=== PATIENT | female | born 1985 | race Caucasian/White ===

== ENCOUNTER 2020-05-22 08:40 | Emergency (ER) | payer OTHER ==
[2020-05-22 08:50] VITALS: BP 131/83; PULSE 126; TEMP 98; BMI 46.5
== END 2020-05-22 10:12 | disposition home or self-care (01) ==
LOC: JER 08:40 → JERFT 08:40
DX: K02.9 Dental caries, unspecified (principal); T85.848A Pain due to other internal prosthetic devices, implants and grafts, initial encounter
CPT/HCPCS: 99283-25

== ENCOUNTER 2020-10-11 17:41 | Inpatient (IN) | payer OTHER ==
[2020-10-11 17:53] VITALS: BMI 20.9
[2020-10-11] MEDS ORDERED: SODIUM CHLORIDE 0.9% 500 ML INFUS.BAG IV ONE (18:15)
[2020-10-11] MEDS ORDERED: ONDANSETRON 4 MG/2 ML VIAL IVPUSH ONE (18:15)
[2020-10-11] MEDS ORDERED: morphine CARPU-JECT 2 MG/1 ML DISP.SYRIN IVPUSH ONE ×2 (18:15→20:45)
[2020-10-11] MEDS ORDERED: ONDANSETRON 4 MG/2 ML VIAL ONE (18:31)
[2020-10-11] MEDS ORDERED: MORPHINE SULFATE 2 MG/ML VIAL ONE ×2 (18:31→21:01)
[2020-10-11 18:48] LABS: BASO % 0.5 % (0-2.0); EOS % 0.1 % (0-4.5); HEMATOCRIT 35.1 % (32.4-45.2); HEMOGLOBIN 12.2 GM/dL (10.7-15.3); LYMPH % 7.4 % (8-40); MCH 26.6 pg (25.7-33.7); MCHC 34.7 g/dl (32.0-36.0); MEAN CELL VOLUME 76.8 fl (80-96); MEAN PLT VOLUME 8.5 fl (7.5-11.1); MONO % 5.8 % (3.8-10.2); NEUT % 86.2 % (42.8-82.8); PLATELET COUNT 120 10^3/uL (134-434); RBC 4.58 M/mm3 (3.60-5.2); RDW 13.5 % (11.6-15.6); WHITE BLOOD COUNT 5.8 K/mm3 (4.0-10.0)
[2020-10-11 19:15] LABS: ALBUMIN 3.9 g/dl (3.4-5.0); BLOOD UREA NITROGEN 9.7 mg/dL (7-18)
[2020-10-11 19:19] LABS: CREATININE 0.5 mg/dL (0.55-1.3)
[2020-10-11 19:21] LABS: BILIRUBIN,TOTAL 0.4 mg/dL (0.2-1); TOT PROT 8.8 g/dl (6.4-8.2)
[2020-10-11] MEDS ORDERED: ACETAMINOPHEN 1000 MG/100 ML VIAL (NON FORMULARY) IVPB ONE (20:40)
[2020-10-11] MEDS ORDERED: PIPERACILLIN/TAZOB 4.5 GM 4.5 GM in DEXTROSE 5%-WATER 100 ML IVPB ONE (20:43)
[2020-10-11] MEDS ORDERED: PIPERACILLIN/TAZOB 4.5 GM 4.5 GM/100 ML BAG IVPB ONE (21:02)
[2020-10-11] MEDS ORDERED: ONDANSETRON 4 MG/2 ML VIAL IVPUSH PRN (21:43)
[2020-10-11 22:07] LABS: URINE APPEARANCE CLEAR; URINE COLOR YELLOW
[2020-10-11 22:08] LABS: URINE BILIRUBIN NEGATIVE (NEGATIVE); URINE GLUCOSE (UA) NEGATIVE (NEGATIVE); URINE KETONE NEGATIVE (NEGATIVE); URINE LEUK ESTERASE NEGATIVE (NEGATIVE); URINE NITRITE NEGATIVE (NEGATIVE); URINE PROTEIN NEGATIVE (NEGATIVE); URINE UROBILINOGEN 0.2 mg/dL (0.2-1.0)
[2020-10-11] MEDS ORDERED: DEXMEDETOMIDINE HCL 200 MCG/2 ML IVPB ONE ×2 (22:26→22:30)
[2020-10-11] MEDS ORDERED: ACETAMINOPHEN INJECTION 100 ML IVPB ONE (22:27)
[2020-10-11] MEDS ORDERED: BUPIVACAINE HCL/PF 0.25% (2.5MG/ML) 10 ML VIAL ONE (22:28)
[2020-10-11] MEDS ORDERED: MIDAZOLAM HCL 2 MG/2 ML SINGLE DOSE VIAL ONE (22:49)
[2020-10-11] MEDS ORDERED: ROCURONIUM BROMIDE 50 MG/5 ML SYRINGE ONE ×2 (22:58→23:24)
[2020-10-11] MEDS ORDERED: EPHEDRINE SULFATE/0.9% NACL/PF 50 MG/10 ML SYRINGE NR ONE (22:58)
[2020-10-11] MEDS ORDERED: PROPOFOL 20 ML ONE ×2 (22:58)
[2020-10-11] MEDS ORDERED: fentaNYL CITRATE 250 MCG/5 ML VIAL ONE (22:58)
[2020-10-11] MEDS ORDERED: KETAMINE HCL 200 MG/20 ML VIAL ONE (22:59)
[2020-10-11] MEDS ORDERED: NEOSTIGMINE METHYLSULFATE 0.5 MG/ML - 10 ML MDV ONE ×2 (23:13→23:17)
[2020-10-11] MEDS ORDERED: LIDOCAINE HCL/PF 2% SDV 5ML VIAL ONE (23:14)
[2020-10-11] MEDS ORDERED: KETOROLAC TROMETHAMINE 30 MG/1 ML VIAL ONE (23:14)
[2020-10-11] MEDS ORDERED: GLYCOPYRROLATE 0.2 MG/1 ML VIAL ONE (23:14)
[2020-10-11] MEDS ORDERED: BUPIVACAINE HCL/PF 0.5% (5MG/ML) 10 ML VIAL ONE (23:25)
[2020-10-11] MEDS ORDERED: BUPIVACAINE HCL/PF 0.5% (5MG/ML) 10 ML VIAL IJ ONE ×2 (23:27)
[2020-10-12] MEDS ORDERED: PIPERACILLIN/TAZOB 3.375 GM 3.375 GM in DEXTROSE 5%-WATER - 50 ML IVPB ONE (01:52)
[2020-10-12] MEDS ORDERED: ACETAMINOPHEN 1000 MG/100 ML VIAL (NON FORMULARY) IVPB ONE (02:33)
[2020-10-12] MEDS: LACTATED RINGERS SOLUTION 1,000 ML/1,000 ML INFUS.BAG IV SCH (02:34)
[2020-10-12] MEDS ORDERED: DEXTROSE 5%-WATER - 50 ML IVPB ONE (03:10)
[2020-10-12] MEDS ORDERED: PIPERACILLIN/TAZOBACTAM 3.375 GM VIAL IVPB ONE (03:10)
[2020-10-12] MEDS ORDERED: MORPHINE SULFATE 2 MG/ML VIAL IVPB ONE (03:26)
[2020-10-12] MEDS ORDERED: morphine CARPU-JECT 2 MG/1 ML DISP.SYRIN IM ONE (03:26)
[2020-10-12 08:43] LABS: BASO % 0.2 % (0-2.0); EOS % 0.1 % (0-4.5); HEMATOCRIT 27.9 % (32.4-45.2); HEMOGLOBIN 9.3 GM/dL (10.7-15.3); LYMPH % 15.8 % (8-40); MCH 26.2 pg (25.7-33.7); MCHC 33.5 g/dl (32.0-36.0); MEAN CELL VOLUME 78.2 fl (80-96); MEAN PLT VOLUME 9.2 fl (7.5-11.1); MONO % 7.9 % (3.8-10.2); PLATELET COUNT 87 10^3/uL (134-434); RBC 3.57 M/mm3 (3.60-5.2); RDW 13.3 % (11.6-15.6); WHITE BLOOD COUNT 2.6 K/mm3 (4.0-10.0)
[2020-10-12 08:55] LABS: BLOOD UREA NITROGEN 6.7 mg/dL (7-18); CALCIUM 7.8 mg/dL (8.5-10.1)
[2020-10-12 08:58] LABS: CREATININE 0.5 mg/dL (0.55-1.3)
[2020-10-12 09:00] LABS: BILIRUBIN,TOTAL 0.4 mg/dL (0.2-1)
[2020-10-12 09:12] LABS: ALBUMIN 2.6 g/dl (3.4-5.0); TOT PROT 6.2 g/dl (6.4-8.2)
[2020-10-12] MEDS: ACETAMINOPHEN 1000 MG/100 ML VIAL (NON FORMULARY) IVPB PRN ×2 (09:25→21:48)
[2020-10-12] MEDS: clonazePAM 0.5 MG TABLET PO SCH ×2 (09:26→21:43)
[2020-10-12] MEDS ORDERED: MORPHINE SULFATE 2 MG/ML VIAL IM ONE (11:32)
[2020-10-12] MEDS ORDERED: CEFEPIME HCL 1 GM VIAL (RESTRICTED TO ID) ONE ×2 (13:54→16:57)
[2020-10-12] MEDS ORDERED: DEXTROSE 5%-WATER 100 ML IVPB ONE ×2 (13:54→16:57)
[2020-10-12 14:10] LABS: BASO % 0.3 % (0-2.0); EOS % 0.6 % (0-4.5); HEMATOCRIT 26.3 % (32.4-45.2); HEMOGLOBIN 9.2 GM/dL (10.7-15.3); LYMPH % 18.3 % (8-40); MCH 26.6 pg (25.7-33.7); MCHC 34.8 g/dl (32.0-36.0); MEAN CELL VOLUME 76.6 fl (80-96); MEAN PLT VOLUME 8.4 fl (7.5-11.1); MONO % 9.4 % (3.8-10.2); NEUT % 71.4 % (42.8-82.8); PLATELET COUNT 80 10^3/uL (134-434); RBC 3.44 M/mm3 (3.60-5.2); RDW 13.4 % (11.6-15.6); WHITE BLOOD COUNT 2.1 K/mm3 (4.0-10.0)
[2020-10-12] MEDS: CEFEPIME 1 GM in DEXTROSE 5%-WATER 1 GM/100 ML BAG IVPB SCH ×2 (14:23→18:09)
[2020-10-12 14:25] LABS: INR 1.01 (0.83-1.09); PROTHROMBIN TIME (PATIENT) 12.2 SEC (9.7-13.0)
[2020-10-12 14:27] LABS: ACTIVATED PTT 27.9 SECONDS (25.2-36.5)
[2020-10-12 14:29] LABS: BLOOD UREA NITROGEN 6.4 mg/dL (7-18); CALCIUM 7.9 mg/dL (8.5-10.1)
[2020-10-12 14:30] LABS: ALBUMIN 2.7 g/dl (3.4-5.0)
[2020-10-12 14:33] LABS: CREATININE 0.5 mg/dL (0.55-1.3)
[2020-10-12 14:34] LABS: BILIRUBIN,TOTAL 0.4 mg/dL (0.2-1); TOT PROT 6.1 g/dl (6.4-8.2)
[2020-10-12] MEDS ORDERED: ESCITALOPRAM OXALATE 10 MG TABLET ONE (21:07)
[2020-10-12] MEDS ORDERED: PT OWN MED DRAWER 7, Y5N ONE (21:08)
[2020-10-12] MEDS: ESCITALOPRAM OXALATE 20 MG TABLET PO SCH (21:43)
[2020-10-13] MEDS ORDERED: CEFEPIME HCL 1 GM VIAL (RESTRICTED TO ID) ONE ×3 (00:47→17:07)
[2020-10-13] MEDS ORDERED: DEXTROSE 5%-WATER 100 ML IVPB ONE ×3 (00:47→17:07)
[2020-10-13] MEDS: CEFEPIME 1 GM in DEXTROSE 5%-WATER 1 GM/100 ML BAG IVPB SCH ×3 (00:59→17:37)
[2020-10-13] MEDS: LACTATED RINGERS SOLUTION 1,000 ML/1,000 ML INFUS.BAG IV SCH ×2 (06:13→14:16)
[2020-10-13 07:45] LABS: IRON SERUM 12 ug/dL (50-175); TOTAL IRON BINDING CAPACITY 170 ug/dL (250-450)
[2020-10-13] MEDS: clonazePAM 0.5 MG TABLET PO SCH ×2 (09:54→20:59)
[2020-10-13] MEDS: ACETAMINOPHEN 1000 MG/100 ML VIAL (NON FORMULARY) IVPB PRN ×2 (12:13→20:51)
[2020-10-13 14:20] LABS: BASO % 1.1 % (0-2.0); EOS % 0.2 % (0-4.5); HEMATOCRIT 26.7 % (32.4-45.2); MCH 26.6 pg (25.7-33.7); MCHC 33.8 g/dl (32.0-36.0); MEAN CELL VOLUME 78.7 fl (80-96); MEAN PLT VOLUME 9.5 fl (7.5-11.1); MONO % 10.1 % (3.8-10.2); NEUT % 67.6 % (42.8-82.8); PLATELET COUNT 83 10^3/uL (134-434); RBC 3.39 M/mm3 (3.60-5.2); RDW 13.5 % (11.6-15.6)
[2020-10-13 14:27] LABS: WHITE BLOOD COUNT 1.7 K/mm3 (4.0-10.0)
[2020-10-13 14:30] LABS: CALCIUM 7.8 mg/dL (8.5-10.1)
[2020-10-13 14:31] LABS: ALBUMIN 2.6 g/dl (3.4-5.0); BLOOD UREA NITROGEN 5.5 mg/dL (7-18)
[2020-10-13 14:34] LABS: CREATININE 0.4 mg/dL (0.55-1.3)
[2020-10-13 14:35] LABS: BILIRUBIN,TOTAL 0.3 mg/dL (0.2-1); TOT PROT 6.4 g/dl (6.4-8.2)
[2020-10-13 15:08] LABS: ANISOCYTOSIS 3+; MACROCYTOSIS 1+; PLATELET ESTIMATE DECREASED
[2020-10-13 15:57] LABS: BASO % 0.2 % (0-2.0); EOS % 0.3 % (0-4.5); HEMATOCRIT 26.2 % (32.4-45.2); HEMOGLOBIN 8.9 GM/dL (10.7-15.3); LYMPH % 15.6 % (8-40); MCH 26.5 pg (25.7-33.7); MCHC 34.1 g/dl (32.0-36.0); MEAN CELL VOLUME 77.8 fl (80-96); MONO % 9.7 % (3.8-10.2); NEUT % 74.2 % (42.8-82.8); PLATELET COUNT 83 10^3/uL (134-434); RBC 3.37 M/mm3 (3.60-5.2); RDW 13.5 % (11.6-15.6)
[2020-10-13 16:17] LABS: ALBUMIN 2.6 g/dl (3.4-5.0); BLOOD UREA NITROGEN 6.2 mg/dL (7-18); CALCIUM 7.7 mg/dL (8.5-10.1)
[2020-10-13 16:20] LABS: CREATININE 0.3 mg/dL (0.55-1.3)
[2020-10-13 16:22] LABS: BILIRUBIN,TOTAL 0.4 mg/dL (0.2-1); TOT PROT 6.3 g/dl (6.4-8.2)
[2020-10-13 16:55] LABS: WHITE BLOOD COUNT 1.8 K/mm3 (4.0-10.0)
[2020-10-13 17:00] LABS: ANISOCYTOSIS 1+; MACROCYTOSIS 0; PLATELET ESTIMATE DECREASED
[2020-10-13] MEDS ORDERED: POTASSIUM CHLORIDE TABS 20 MEQ TABLET.ER (FP) PO ONE (17:44)
[2020-10-13] MEDS ORDERED: ESCITALOPRAM OXALATE 10 MG TABLET ONE (20:42)
[2020-10-13] MEDS ORDERED: PT OWN MED DRAWER 7, Y5N ONE (20:43)
[2020-10-13] MEDS: ESCITALOPRAM OXALATE 20 MG TABLET PO SCH (20:59)
[2020-10-14] MEDS ORDERED: CEFEPIME HCL 1 GM VIAL (RESTRICTED TO ID) ONE ×2 (01:29→08:55)
[2020-10-14] MEDS ORDERED: DEXTROSE 5%-WATER 100 ML IVPB ONE ×2 (01:30→08:55)
[2020-10-14] MEDS: CEFEPIME 1 GM in DEXTROSE 5%-WATER 1 GM/100 ML BAG IVPB SCH ×2 (01:33→09:01)
[2020-10-14] MEDS: LACTATED RINGERS SOLUTION 1,000 ML/1,000 ML INFUS.BAG IV SCH (02:31)
[2020-10-14] MEDS: ACETAMINOPHEN 1000 MG/100 ML VIAL (NON FORMULARY) IVPB PRN ×2 (05:33→09:55)
[2020-10-14 06:56] LABS: BASO % 0.4 % (0-2.0); EOS % 0.6 % (0-4.5); HEMOGLOBIN 8.9 GM/dL (10.7-15.3); LYMPH % 22.4 % (8-40); MCH 26.6 pg (25.7-33.7); MCHC 34.3 g/dl (32.0-36.0); MEAN CELL VOLUME 77.5 fl (80-96); MEAN PLT VOLUME 8.5 fl (7.5-11.1); MONO % 12.4 % (3.8-10.2); NEUT % 64.2 % (42.8-82.8); PLATELET COUNT 82 10^3/uL (134-434); RBC 3.36 M/mm3 (3.60-5.2); RDW 13.6 % (11.6-15.6)
[2020-10-14 07:13] LABS: WHITE BLOOD COUNT 1.5 K/mm3 (4.0-10.0)
[2020-10-14] MEDS: clonazePAM 0.5 MG TABLET PO SCH ×2 (09:00→21:33)
[2020-10-14 10:40] LABS: ANISOCYTOSIS 1+; MACROCYTOSIS 0; PLATELET ESTIMATE DECREASED
[2020-10-14] MEDS ORDERED: ESCITALOPRAM OXALATE 10 MG TABLET ONE (21:19)
[2020-10-14] MEDS ORDERED: PT OWN MED DRAWER 7, Y5N ONE (21:20)
[2020-10-14] MEDS: ESCITALOPRAM OXALATE 20 MG TABLET PO SCH (21:33)
[2020-10-15 06:44] VITALS: TEMP 98.3
[2020-10-15] MEDS: LACTATED RINGERS SOLUTION 1,000 ML/1,000 ML INFUS.BAG IV SCH (07:00)
[2020-10-15 07:33] LABS: BASO % 2.4 % (0-2.0); EOS % 0.7 % (0-4.5); HEMATOCRIT 27.8 % (32.4-45.2); HEMOGLOBIN 9.5 GM/dL (10.7-15.3); MCH 26.3 pg (25.7-33.7); MCHC 34.1 g/dl (32.0-36.0); MEAN CELL VOLUME 77.2 fl (80-96); MEAN PLT VOLUME 9.4 fl (7.5-11.1); MONO % 9.2 % (3.8-10.2); NEUT % 66.7 % (42.8-82.8); PLATELET COUNT 116 10^3/uL (134-434); RBC 3.61 M/mm3 (3.60-5.2); RDW 13.6 % (11.6-15.6)
[2020-10-15 07:42] LABS: WHITE BLOOD COUNT 1.7 K/mm3 (4.0-10.0)
[2020-10-15 07:52] LABS: CALCIUM 7.5 mg/dL (8.5-10.1)
[2020-10-15 07:53] LABS: ALBUMIN 2.6 g/dl (3.4-5.0); BLOOD UREA NITROGEN 8.7 mg/dL (7-18)
[2020-10-15 07:56] LABS: CREATININE 0.4 mg/dL (0.55-1.3)
[2020-10-15 07:58] LABS: BILIRUBIN,TOTAL 0.3 mg/dL (0.2-1); TOT PROT 6.3 g/dl (6.4-8.2)
[2020-10-15] MEDS: clonazePAM 0.5 MG TABLET PO SCH (09:12)
[2020-10-15 09:16] VITALS: BP 129/83; PULSE 69
[2020-10-15 09:17] LABS: ANISOCYTOSIS 1+; MACROCYTOSIS 0; OVALOCYTE 1+; PLATELET ESTIMATE DECREASED
== END 2020-10-15 11:41 | disposition home or self-care (01) | DRG 225 ==
LOC: JER 17:41 → JERBED 21:03 → J4S 23:35
PROVIDERS: ADMIT Hospitalist; ATTEND Family Medicine
PROC: 0DTJ4ZZ Resection of Appendix, Percutaneous Endoscopic Approach (ICD-10-PCS; principal; 2020-10-12)
PROC: 0W3P4ZZ Control Bleeding in Gastrointestinal Tract, Percutaneous Endoscopic Approach (ICD-10-PCS; 2020-10-12)
DX: K35.30 Acute appendicitis with localized peritonitis, without perforation or gangrene (principal); D61.818 Other pancytopenia; F41.8 Other specified anxiety disorders; R16.1 Splenomegaly, not elsewhere classified; R59.1 Generalized enlarged lymph nodes; G43.909 Migraine, unspecified, not intractable, without status migrainosus; D50.9 Iron deficiency anemia, unspecified
CPT/HCPCS: 36415; 74177-TC; 80053; 81003; 82728; 83540; 83550; 83615; 84703; 85025; 85384; 85610; 85730; 86850; 86900; 86901; 87040; 87086; 88304-TC; 94760; 99285-25; C9803; J0131; Q9967; U0003; U0005

== ENCOUNTER 2020-11-12 07:46 | Inpatient (IN) | payer OTHER ==
[2020-11-12 07:59] VITALS: BMI 20.9
[2020-11-12] MEDS ORDERED: ACETAMINOPHEN 1000 MG/100 ML VIAL (NON FORMULARY) IVPB ONE (08:05)
[2020-11-12] MEDS ORDERED: SODIUM CHLORIDE 0.9% 500 ML INFUS.BAG IV ONE (08:45)
[2020-11-12] MEDS ORDERED: ACETAMINOPHEN INJECTION 100 ML IVPB ONE (08:49)
[2020-11-12 09:26] LABS: BASO % 0.4 % (0-2.0); HEMATOCRIT 30.8 % (32.4-45.2); HEMOGLOBIN 10.5 GM/dL (10.7-15.3); LYMPH % 2.6 % (8-40); MCH 26.4 pg (25.7-33.7); MCHC 34.2 g/dl (32.0-36.0); MEAN PLT VOLUME 11.1 fl (7.5-11.1); MONO % 7.3 % (3.8-10.2); NEUT % 89.7 % (42.8-82.8); PLATELET COUNT 122 10^3/uL (134-434); RBC 3.99 M/mm3 (3.60-5.2); RDW 14.5 % (11.6-15.6); WHITE BLOOD COUNT 8.6 K/mm3 (4.0-10.0)
[2020-11-12 09:29] LABS: VENOUS O2 SATURATION 60.1 % (70-80); VENOUS PCO2 39.9 mmHg (38-52); VENOUS PH 7.362 (7.310-7.410)
[2020-11-12 09:33] LABS: INR 1.16 (0.83-1.09)
[2020-11-12 09:36] LABS: ACTIVATED PTT 29.5 SECONDS (25.2-36.5)
[2020-11-12 09:49] LABS: CHLORIDE 100 mmol/L (98-107); SODIUM 136 mmol/L (136-145)
[2020-11-12 09:51] LABS: ANION GAP 12 MMOL/L (8-16); BLOOD UREA NITROGEN 16.2 mg/dL (7-18); CALCIUM 8.4 mg/dL (8.5-10.1); CO2 24 mmol/L (21-32); GLUCOSE,RANDOM 104 mg/dL (74-106)
[2020-11-12 09:55] LABS: CREATININE 0.9 mg/dL (0.55-1.3); SGOT/AST 25 U/L (15-37); SGPT/ALT 13 U/L (13-61)
[2020-11-12 09:56] LABS: BILIRUBIN,TOTAL 0.6 mg/dL (0.2-1); LDH 250 U/L (84-246); TOT PROT 8.4 g/dl (6.4-8.2)
[2020-11-12 09:57] LABS: ALK PHOS 51 U/L (45-117)
[2020-11-12 10:08] LABS: LACTIC ACID 2.3 mmol/L (0.4-2.0)
[2020-11-12] MEDS ORDERED: CEFTRIAXONE 1 GM in DEXTROSE 5%-WATER - 50 ML IVPB ONE (13:14)
[2020-11-12] MEDS ORDERED: AZITHROMYCIN IVPB 500 MG in DEXTROSE 5%-WATER - 250 ML IVPB ONE (13:14)
[2020-11-12] MEDS ORDERED: CEFTRIAXONE 1 GM/50 ML BAG ONE (13:55)
[2020-11-12] MEDS ORDERED: AZITHROMYCIN IVPB 500 MG/250 ML BAG IVPB ONE (13:55)
[2020-11-12] MEDS ORDERED: ALBUTEROL SO4 2.5/IPRATROPIUM 0.5 INH SOL 3 ML VIAL.NEB. NEB PRN (16:19)
[2020-11-12] MEDS ORDERED: PIPERACILLIN/TAZOB 3.375 GM 3.375 GM in DEXTROSE 5%-WATER - 50 ML IVPB ONE (16:19)
[2020-11-12 17:14] LABS: EPI CELLS 36 /uL (0-25.1); HYALINE CASTS 0 /uL (0-3.1); PH,URINE 5.5 (5.0-8.0); URINE APPEARANCE CLEAR; URINE BACTERIA 1063 /uL (0-1359); URINE BILIRUBIN NEGATIVE (NEGATIVE); URINE COLOR YELLOW; URINE GLUCOSE (UA) NEGATIVE (NEGATIVE); URINE KETONE NEGATIVE (NEGATIVE); URINE LEUK ESTERASE TRACE (NEGATIVE); URINE NITRITE NEGATIVE (NEGATIVE); URINE PROTEIN TRACE (NEGATIVE); URINE RBC 18 /uL (0-23.9); URINE UROBILINOGEN 0.2 mg/dL (0.2-1.0); URINE WBC 75 /uL (0-25.8)
[2020-11-12] MEDS ORDERED: PIPERACILLIN/TAZOB 3.375 GM 3.375 GM/50 ML BAG IVPB ONE (17:15)
[2020-11-12] MEDS ORDERED: VANCOMYCIN 1 GM in D5W (PRE-DOCKED) 1,000 MG/250 ML IVPB ONE (19:08)
[2020-11-12] MEDS: ACETAMINOPHEN 325 MG TABLET (FP) PO PRN (21:26)
[2020-11-13] MEDS ORDERED: SODIUM CHLORIDE 0.9% 500 ML INFUS.BAG IV ONE (01:47)
[2020-11-13] MEDS ORDERED: SODIUM CHLORIDE 250 ML IV STA (01:54)
[2020-11-13] MEDS: ACETAMINOPHEN 325 MG TABLET (FP) PO PRN (06:29)
[2020-11-13 09:16] LABS: BASO % 0.3 % (0-2.0); HEMATOCRIT 26.8 % (32.4-45.2); HEMOGLOBIN 9.3 GM/dL (10.7-15.3); LYMPH % 5.6 % (8-40); MCH 26.6 pg (25.7-33.7); MCHC 34.5 g/dl (32.0-36.0); MEAN PLT VOLUME 10.9 fl (7.5-11.1); MONO % 7.8 % (3.8-10.2); NEUT % 86.3 % (42.8-82.8); PLATELET COUNT 120 10^3/uL (134-434); RBC 3.48 M/mm3 (3.60-5.2); RDW 14.6 % (11.6-15.6); WHITE BLOOD COUNT 4.3 K/mm3 (4.0-10.0)
[2020-11-13 09:35] LABS: CHLORIDE 104 mmol/L (98-107); SODIUM 136 mmol/L (136-145)
[2020-11-13 09:46] LABS: ALK PHOS 46 U/L (45-117)
[2020-11-13 09:50] LABS: CALCIUM 7.7 mg/dL (8.5-10.1)
[2020-11-13 09:51] LABS: ALBUMIN 2.5 g/dl (3.4-5.0); BLOOD UREA NITROGEN 13.1 mg/dL (7-18); CO2 20 mmol/L (21-32); GLUCOSE,RANDOM 83 mg/dL (74-106); SGPT/ALT 11 U/L (13-61)
[2020-11-13 09:55] LABS: CREATININE 0.6 mg/dL (0.55-1.3); SGOT/AST 16 U/L (15-37)
[2020-11-13 09:56] LABS: BILIRUBIN,TOTAL 0.7 mg/dL (0.2-1)
[2020-11-13 10:09] LABS: ERYTHROCYTE SEDIMENTATION RATE 99 mm/hr (0-20)
[2020-11-13 10:12] LABS: LDH 176 U/L (84-246)
[2020-11-13 10:26] LABS: ANION GAP 12 MMOL/L (8-16)
[2020-11-13] MEDS ORDERED: POTASSIUM CHLORIDE TABS 20 MEQ TABLET.ER (FP) PO ONE (13:00)
[2020-11-13] MEDS ORDERED: PIPERACILLIN/TAZOB 3.375 GM 3.375 GM in DEXTROSE 5%-WATER - 50 ML IVPB SCH (13:45)
[2020-11-13 13:47] VITALS: BP 103/66; PULSE 77; TEMP 98
[2020-11-13] MEDS ORDERED: VANCOMYCIN 1 GRAM (PRE-DOCKED) 1,000 MG/250 ML BAG IVPB SCH (14:00)
[2020-11-13] MEDS ORDERED: POTASSIUM CHLORIDE 10 MEQ in SODIUM CHLORIDE 1,000 ML IV SCH (14:00)
[2020-11-13] MEDS ORDERED: DEXTROSE 5%-WATER - 50 ML IVPB ONE ×2 (14:05→17:46)
[2020-11-13] MEDS ORDERED: PIPERACILLIN/TAZOBACTAM 3.375 GM VIAL IVPB ONE ×2 (14:05→17:46)
[2020-11-13] MEDS: PIPERACILLIN/TAZOB 3.375 GM 3.375 GM in DEXTROSE 5%-WATER - 50 ML IVPB SCH ×2 (14:07→17:50)
== END 2020-11-13 18:32 | disposition left against medical advice (07) | DRG 139 ==
LOC: JER 07:46 → JERBED 17:02 → J6S 18:56
PROVIDERS: ATTEND Family Medicine
DX: J18.9 Pneumonia, unspecified organism (principal); I10 Essential (primary) hypertension; E78.5 Hyperlipidemia, unspecified; F39 Unspecified mood [affective] disorder; F41.8 Other specified anxiety disorders; R74.02 Elevation of levels of lactic acid dehydrogenase [LDH]; R78.81 Bacteremia; R53.83 Other fatigue; R10.31 Right lower quadrant pain; D69.6 Thrombocytopenia, unspecified; D64.9 Anemia, unspecified; R64 Cachexia; Z68.21 Body mass index [BMI] 21.0-21.9, adult
CPT/HCPCS: 36415; 71045-TC-FY; 71275-TC; 80053; 80074; 81003; 82728; 82803; 83605; 83615; 84484; 84703; 85025; 85379; 85610; 85651; 85730; 86140; 87040; 87086; 87186; 87804; 93005; 93010; 99285-25; C9803; J0131; Q9967; U0003; U0005

== ENCOUNTER 2021-09-04 16:01 | Emergency (ER) | payer OTHER ==
[2021-09-04 16:17] VITALS: TEMP 99.6
[2021-09-04] MEDS ORDERED: SODIUM CHLORIDE 1,633 ML IV ONE (17:21)
[2021-09-04] MEDS ORDERED: FAMOTIDINE 20 MG/50 ML IVPB 20 MG/50 ML MG IVPB ONE (17:47)
[2021-09-04] MEDS ORDERED: ONDANSETRON 4 MG/2 ML VIAL IVPB ONE (17:55)
[2021-09-04] MEDS ORDERED: ONDANSETRON 4 MG/2 ML VIAL ONE (18:02)
[2021-09-04] MEDS ORDERED: FAMOTIDINE 10 MG/ML VIAL IVPB ONE (18:03)
[2021-09-04 18:18] LABS: VENOUS BASE EXCESS -1.3 mmol/L (-2-2); VENOUS O2 SATURATION 97.3 % (70-80); VENOUS PH 7.42 (7.310-7.410)
[2021-09-04 18:21] LABS: BASO % 0.2 % (0-2.0); EOS % 0.1 % (0-4.5); HEMATOCRIT 27.5 % (32.4-45.2); HEMOGLOBIN 9.2 GM/dL (10.7-15.3); LYMPH % 4.8 % (8-40); MCH 25.7 pg (25.7-33.7); MCHC 33.5 g/dl (32.0-36.0); MEAN CELL VOLUME 76.7 fl (80-96); MEAN PLT VOLUME 8.8 fl (7.5-11.1); MONO % 6.2 % (3.8-10.2); NEUT % 88.7 % (42.8-82.8); PLATELET COUNT 145 10^3/uL (134-434); RBC 3.59 M/mm3 (3.60-5.2); RDW 14.4 % (11.6-15.6)
[2021-09-04 18:28] LABS: INR 1.09 (0.83-1.09); PROTHROMBIN TIME (PATIENT) 12.5 SEC (9.7-13.0)
[2021-09-04 18:30] LABS: ACTIVATED PTT 32.5 SECONDS (25.2-36.5)
[2021-09-04 18:37] LABS: CHLORIDE 106 mmol/L (98-107); SODIUM 136 mmol/L (136-145)
[2021-09-04 18:40] LABS: CALCIUM 8.3 mg/dL (8.5-10.1)
[2021-09-04 18:41] LABS: ANION GAP 6 MMOL/L (8-16); BLOOD UREA NITROGEN 14.5 mg/dL (7-18); CO2 25 mmol/L (21-32); GLUCOSE,RANDOM 103 mg/dL (74-106)
[2021-09-04 18:44] LABS: CREATININE 0.6 mg/dL (0.55-1.3); SGOT/AST 10 U/L (15-37); SGPT/ALT 10 U/L (13-61)
[2021-09-04 18:45] LABS: TOT PROT 7.8 g/dl (6.4-8.2)
[2021-09-04 18:47] LABS: ALK PHOS 57 U/L (45-117)
[2021-09-04 18:52] LABS: BILIRUBIN,TOTAL 0.3 mg/dL (0.2-1)
[2021-09-04] MEDS ORDERED: SODIUM CHLORIDE 0.9% 500 ML INFUS.BAG IV ONE (20:08)
[2021-09-04 21:32] VITALS: BP 100/58; PULSE 83
== END 2021-09-04 21:38 | disposition home or self-care (01) ==
LOC: JER 16:01
PROC: 3E033GC Introduction of Other Therapeutic Substance into Peripheral Vein, Percutaneous Approach (ICD-10-PCS; principal; 2021-09-04)
DX: R65.10 Systemic inflammatory response syndrome (SIRS) of non-infectious origin without acute organ dysfunction (principal)
CPT/HCPCS: 0241U-QW; 36415; 71045-TC-FY; 80053; 82553; 82803; 83605; 84703; 85025; 85610; 85730; 86850; 86900; 86901; 87040; 87086; 99285-25

== ENCOUNTER 2022-08-03 12:43 | Inpatient (IN) | payer OTHER ==
[2022-08-03] MEDS ORDERED: SODIUM CHLORIDE 0.9% 500 ML INFUS.BAG IV ONE ×2 (13:23)
[2022-08-03] MEDS ORDERED: CEFTRIAXONE 1 GM in DEXTROSE 5%-WATER - 100 ML IVPB ONE (13:27)
[2022-08-03] MEDS ORDERED: ACETAMINOPHEN 1000 MG/100 ML BAG IVPB ONE (13:27)
[2022-08-03] MEDS ORDERED: ACETAMINOPHEN INJECTION 100 ML IVPB ONE (13:30)
[2022-08-03] MEDS ORDERED: CEFTRIAXONE 1 GM/50 ML BAG ONE (13:30)
[2022-08-03 13:48] LABS: INR 1.44 (0.83-1.09); PROTHROMBIN TIME (PATIENT) 16.6 SEC (9.7-13.0)
[2022-08-03 13:51] LABS: ACTIVATED PTT 32.9 SECONDS (25.2-36.5)
[2022-08-03 13:56] LABS: POTASSIUM 3.7 mmol/L (3.5-5.1)
[2022-08-03 13:59] LABS: ALBUMIN 1.8 g/dl (3.4-5.0)
[2022-08-03 14:00] LABS: MAGNESIUM 1.7 mg/dL (1.8-2.4)
[2022-08-03 14:02] LABS: CREATININE 1.4 mg/dL (0.55-1.3); PHOSPHOROUS 3.1 mg/dL (2.5-4.9)
[2022-08-03 14:03] LABS: BILIRUBIN,TOTAL 0.4 mg/dL (0.2-1); TOT PROT 7.9 g/dl (6.4-8.2)
[2022-08-03] MEDS ORDERED: AZITHROMYCIN IVPB 500 MG in DEXTROSE 5%-WATER - 250 ML IVPB ONE (14:04)
[2022-08-03 14:05] LABS: HEMATOCRIT 24.3 % (32.4-45.2); MCH 23.2 pg (25.7-33.7); MEAN CELL VOLUME 70.2 fl (80-96); MEAN PLT VOLUME 9.7 fl (7.5-11.1); PLATELET COUNT 173 10^3/uL (134-434); RBC 3.45 M/mm3 (3.60-5.2); RDW 17.2 % (11.6-15.6)
[2022-08-03] MEDS ORDERED: AZITHROMYCIN IVPB 500 MG/250 ML BAG IVPB ONE (14:08)
[2022-08-03 14:12] LABS: WHITE BLOOD COUNT 1.1 K/mm3 (4.0-10.0)
[2022-08-03 14:20] LABS: VENOUS BASE EXCESS -10.4 mmol/L (-2-2); VENOUS O2 SATURATION 97.1 % (70-80); VENOUS PCO2 26.5 mmHg (38-52); VENOUS PH 7.346 (7.310-7.410)
[2022-08-03 14:38] LABS: ANISOCYTOSIS 2+; MACROCYTOSIS 2+
[2022-08-03] MEDS ORDERED: HYDROCORTISONE SOD SUCCINATE 100 MG/2 ML VIAL IVPUSH ONE (14:44)
[2022-08-03] MEDS ORDERED: HYDROCORTISONE SOD SUCCINATE 100 MG/2 ML VIAL ONE (14:54)
[2022-08-03] MEDS ORDERED: CEFEPIME HCL/D5W 1 GM/50 ML BAG IVPB ONE (15:08)
[2022-08-03] MEDS ORDERED: VANCOMYCIN 1 GM in D5W (PRE-DOCKED) 1,000 MG/250 ML (RESTRICTED TO ID ONLY IVPB ONE (15:08)
[2022-08-03] MEDS ORDERED: ALPRAZolam 1 MG TABLET PO PRN (15:12)
[2022-08-03] MEDS ORDERED: KETAMINE HCL 200 MG/20 ML VIAL IVPUSH ONE (15:16)
[2022-08-03] MEDS ORDERED: ALPRAZolam 1 MG TABLET ONE (15:37)
[2022-08-03] MEDS ORDERED: KETAMINE HCL 200 MG/20 ML VIAL ONE (15:37)
[2022-08-03] MEDS ORDERED: MAGNESIUM SULF 50% (8.12 MEQ/2 ML-1 GM VIAL) IVPB ONE ×2 (15:38→21:15)
[2022-08-03] MEDS ORDERED: CEFEPIME 1 GM/100 ML BAG IVPB ONE (15:38)
[2022-08-03] MEDS ORDERED: ENOXAPARIN NA (PORCINE) 30 MG/0.3 ML DISP.SYRIN SQ SCH (16:15)
[2022-08-03] MEDS ORDERED: MAGNESIUM 1GM/D5W - 1 GM/100 ML IVPB IVPB ONE (16:31)
[2022-08-03] MEDS: LACTATED RINGERS SOLUTION 1,000 ML/1,000 ML INFUS.BAG IV SCH (17:05)
[2022-08-03 17:21] LABS: EPI CELLS 15 /uL (0-25.1); HYALINE CASTS 0 /uL (0-3.1); URINE APPEARANCE CLEAR; URINE BACTERIA 248 /uL (0-1359); URINE BILIRUBIN NEGATIVE (NEGATIVE); URINE COLOR YELLOW; URINE GLUCOSE (UA) NEGATIVE (NEGATIVE); URINE KETONE NEGATIVE (NEGATIVE); URINE LEUK ESTERASE TRACE (NEGATIVE); URINE NITRITE NEGATIVE (NEGATIVE); URINE PROTEIN 1+ (NEGATIVE); URINE RBC 13 /uL (0-23.9); URINE UROBILINOGEN 0.2 mg/dL (0.2-1.0); URINE WBC 12 /uL (0-25.8)
[2022-08-03 17:31] LABS: METHADONE, UR NEGATIVE (NEGATIVE)
[2022-08-03 17:32] LABS: OPIATES, URI NEGATIVE (NEGATIVE); PHENCYCLIDINE,URINE NEGATIVE (NEGATIVE)
[2022-08-03 17:34] LABS: URINE AMPHETAMINES NEGATIVE (NEGATIVE)
[2022-08-03 17:36] LABS: COCAINE, UR NEGATIVE (NEGATIVE); URINE BARBITURATES NEGATIVE (NEGATIVE); URINE BENZODIAZEPINES POSITIVE (NEGATIVE)
[2022-08-03 17:38] LABS: CHLORIDE 113 mmol/L (98-107); POTASSIUM 3.7 mmol/L (3.5-5.1); SODIUM 137 mmol/L (136-145)
[2022-08-03 17:42] LABS: ANION GAP 7 MMOL/L (8-16); BLOOD UREA NITROGEN 31.3 mg/dL (7-18); CO2 17 mmol/L (21-32); GLUCOSE,RANDOM 110 mg/dL (74-106)
[2022-08-03 17:44] LABS: SGOT/AST 41 U/L (15-37)
[2022-08-03 17:45] LABS: ALK PHOS 45 U/L (45-117); BILIRUBIN,TOTAL 0.3 mg/dL (0.2-1); SGPT/ALT 21 U/L (13-61)
[2022-08-03 18:06] LABS: LDH 328 U/L (84-246)
[2022-08-03 18:14] LABS: ALBUMIN 1.3 g/dl (3.4-5.0)
[2022-08-03] MEDS ORDERED: VANCOMYCIN/WATER FOR INJ (PEG) 1,000 MG/200 ML BAG IVPB ONE (18:24)
[2022-08-03] MEDS ORDERED: RAPID SEQUENCE INTUBATION KIT NR ONE (18:36)
[2022-08-03] MEDS ORDERED: MIDAZOLAM IN 0.9 % SOD.CHLORID 1 MG/1 ML PLAST..BAG ONE (18:38)
[2022-08-03 18:46] LABS: CALCIUM 6.6 mg/dL (8.5-10.1)
[2022-08-03] MEDS ORDERED: ROCURONIUM BROMIDE 50 MG/5 ML VIAL IV ONE (19:03)
[2022-08-03] MEDS ORDERED: ETOMIDATE 40 MG/20 ML VIAL IVPUSH ONE (19:03)
[2022-08-03] MEDS ORDERED: MIDAZOLAM IN 0.9 % SOD.CHLORID 100 MG/100 ML PLAST..BAG IVPB SCH (19:15)
[2022-08-03] MEDS ORDERED: FENTANYL NS IVPB 500 MCG/100 ML BAG IVPB SCH (19:15)
[2022-08-03] MEDS ORDERED: CALCIUM GLUC IN NACL, ISO-OSM 1 GM/50 ML BAG IVPB ONE (21:15)
[2022-08-03] MEDS: PROPOFOL 1,000,000 MCG/100 ML VIAL IVPB SCH (21:51)
[2022-08-03] MEDS ORDERED: MUPIROCIN 2% TOPICAL OINTMENT FOR DECOLONIZATION NS SCH (22:00)
[2022-08-03] MEDS ORDERED: LACTATED RINGERS SOLUTION 1000 ML INFUS.BAG IV ONE (22:15)
[2022-08-03] MEDS: MUPIROCIN 2% TOPICAL OINTMENT FOR DECOLONIZATION NS SCH (22:42)
[2022-08-03] MEDS: HEPARIN NA (PORCINE) 5,000 UNITS/ML 1ML VIAL SQ SCH (22:42)
[2022-08-03] MEDS: CHLORHEXIDINE GLUCONATE 4% CLEANSER FOR DECOLONIZATION TP SCH (22:43)
[2022-08-04] MEDS: PIPERACILLIN/TAZOB 3.375 GM 3.375 GM in DEXTROSE 5%-WATER - 50 ML IVPB SCH ×5 (00:37→17:11)
[2022-08-04] MEDS ORDERED: fentaNYL CITRATE 250 MCG/5 ML VIAL ONE (01:37)
[2022-08-04 01:53] LABS: ARTERIAL BLD GAS O2 SATURATION 99.1 % (95-98); ARTERIAL BLOOD GAS BASE EXCESS -7.2 mmol/L (-2-2); ARTERIAL BLOOD GAS PO2 178.2 mmHg (80-100); ARTERIAL BLOOD GAS pH 7.303 (7.350-7.450)
[2022-08-04 02:08] LABS: HEMATOCRIT 23.2 % (32.4-45.2); HEMOGLOBIN 7.7 GM/dL (10.7-15.3); MCH 23.2 pg (25.7-33.7); MEAN CELL VOLUME 70.3 fl (80-96); MEAN PLT VOLUME 9.1 fl (7.5-11.1); PLATELET COUNT 98 10^3/uL (134-434); RDW 17.1 % (11.6-15.6)
[2022-08-04 02:11] LABS: ALLENS TEST POSITIVE; VENT MODE A/C; VENT RATE 20
[2022-08-04 02:14] LABS: WHITE BLOOD COUNT 0.9 K/mm3 (4.0-10.0)
[2022-08-04 02:18] LABS: POTASSIUM 3.6 mmol/L (3.5-5.1)
[2022-08-04 02:19] LABS: CALCIUM 7.2 mg/dL (8.5-10.1)
[2022-08-04 02:20] LABS: BLOOD UREA NITROGEN 29.7 mg/dL (7-18)
[2022-08-04 02:23] LABS: CREATININE 0.7 mg/dL (0.55-1.3)
[2022-08-04] MEDS ORDERED: VANCOMYCIN/WATER FOR INJ (PEG) 750 MG/150 ML BAG IVPB SCH (02:30)
[2022-08-04] MEDS ORDERED: VANCOMYCIN 750 MG in DEXTROSE 5%-WATER - 100 ML IVPB SCH (02:30)
[2022-08-04] MEDS ORDERED: VANCOMYCIN 750 MG in DEXTROSE 5%-WATER - 100 ML IVPB ONE (02:30)
[2022-08-04 02:58] LABS: LACTIC ACID 3.1 mmol/L (0.4-2.0)
[2022-08-04] MEDS ORDERED: ACETAMINOPHEN INJECTION 100 ML IVPB ONE (04:06)
[2022-08-04] MEDS: ACETAMINOPHEN 1000 MG/100 ML BAG IVPB PRN ×2 (04:08→16:19)
[2022-08-04] MEDS ORDERED: REMDESIVIR 200 MG in SODIUM CHLORIDE 250 ML IVPB ONE (05:00)
[2022-08-04] MEDS: HEPARIN NA (PORCINE) 5,000 UNITS/ML 1ML VIAL SQ SCH ×3 (06:27→21:35)
[2022-08-04 06:56] LABS: ARTERIAL BLD GAS O2 SATURATION 97.8 % (95-98); ARTERIAL BLOOD GAS PO2 117.8 mmHg (80-100); ARTERIAL BLOOD GAS pH 7.268 (7.350-7.450)
[2022-08-04 06:58] LABS: VENT MODE A/C; VENT RATE 20
[2022-08-04 06:59] LABS: EPI CELLS 16 /uL (0-25.1); HYALINE CASTS 1 /uL (0-3.1); URINE APPEARANCE CLEAR; URINE BACTERIA 2 /uL (0-1359); URINE BILIRUBIN NEGATIVE (NEGATIVE); URINE COLOR YELLOW; URINE GLUCOSE (UA) NEGATIVE (NEGATIVE); URINE KETONE NEGATIVE (NEGATIVE); URINE LEUK ESTERASE NEGATIVE (NEGATIVE); URINE NITRITE NEGATIVE (NEGATIVE); URINE PROTEIN 1+ (NEGATIVE); URINE RBC 103 /uL (0-23.9); URINE UROBILINOGEN 0.2 mg/dL (0.2-1.0); URINE WBC 9 /uL (0-25.8)
[2022-08-04 07:43] LABS: HEMOGLOBIN 7.5 GM/dL (10.7-15.3); MCHC 32.8 g/dl (32.0-36.0); MEAN CELL VOLUME 70.1 fl (80-96); MEAN PLT VOLUME 10.2 fl (7.5-11.1); PLATELET COUNT 100 10^3/uL (134-434); RBC 3.28 M/mm3 (3.60-5.2); RDW 16.8 % (11.6-15.6)
[2022-08-04 07:51] LABS: POTASSIUM 3.4 mmol/L (3.5-5.1)
[2022-08-04 07:53] LABS: CALCIUM 7.1 mg/dL (8.5-10.1)
[2022-08-04 07:54] LABS: ALBUMIN 1.3 g/dl (3.4-5.0); BLOOD UREA NITROGEN 28.8 mg/dL (7-18); MAGNESIUM 2.9 mg/dL (1.8-2.4)
[2022-08-04 07:57] LABS: CREATININE 0.7 mg/dL (0.55-1.3); PHOSPHOROUS 4.2 mg/dL (2.5-4.9)
[2022-08-04 07:58] LABS: BILIRUBIN,TOTAL 0.4 mg/dL (0.2-1); TOT PROT 5.9 g/dl (6.4-8.2)
[2022-08-04 08:18] LABS: WHITE BLOOD COUNT 1.3 K/mm3 (4.0-10.0)
[2022-08-04] MEDS: NOREPINEPHRINE BITARTRATE 4,000 MCG in DEXTROSE 5%-WATER - 496 ML IV SCH (09:00)
[2022-08-04] MEDS ORDERED: NOREPINEPHRINE BITARTRATE 4 MG/4 ML ML IV ONE (09:16)
[2022-08-04] MEDS ORDERED: LACTATED RINGERS SOLUTION 1,000 ML/1,000 ML INFUS.BAG IV STA (09:27)
[2022-08-04 10:07] LABS: ANISOCYTOSIS 1+; MACROCYTOSIS 0; OVALOCYTE 1+
[2022-08-04 10:24] LABS: ANISOCYTOSIS 0; HELMET CELLS 0; HOWELL-JOLLY BODIES 0; MACROCYTOSIS 0; OVALOCYTE 0; ROULEAU 0; SICKELED CELLS 0; TARGET CELLS 0; TEAR DROP CELLS 0; TOXIC GRANULATION 0
[2022-08-04] MEDS: MUPIROCIN 2% TOPICAL OINTMENT FOR DECOLONIZATION NS SCH ×2 (10:41→21:35)
[2022-08-04] MEDS: LACTATED RINGERS SOLUTION 1,000 ML/1,000 ML INFUS.BAG IV SCH ×2 (10:44→19:15)
[2022-08-04] MEDS: PANTOPRAZOLE SODIUM 40 MG VIAL IVPUSH SCH (11:10)
[2022-08-04] MEDS: AZITHROMYCIN IVPB 500 MG/250 ML BAG IVPB SCH (11:10)
[2022-08-04] MEDS: DEXAMETHASONE SOD PHOSPHATE 10 MG/1 ML VIAL IVPUSH SCH (11:10)
[2022-08-04] MEDS ORDERED: AZITHROMYCIN IVPB 500 MG/250 ML BAG IVPB ONE (12:00)
[2022-08-04] MEDS ORDERED: DEXTROSE 50%-WATER 25 GM/50 ML DISP.SYRIN ONE (12:39)
[2022-08-04] MEDS: DEXTROSE 5%-LACTATED RINGERS 1,000 ML IV SCH ×2 (13:00→21:38)
[2022-08-04] MEDS ORDERED: DEXTROSE 50%-WATER - 25 GM/50 ML VIAL IVPUSH ONE (13:00)
[2022-08-04] MEDS: VANCOMYCIN/WATER FOR INJ (PEG) 750 MG/150 ML BAG IVPB SCH (13:19)
[2022-08-04] MEDS ORDERED: POTASSIUM CHLORIDE ORAL LIQUID 20 MEQ/15 ML GT ONE (13:49)
[2022-08-04] MEDS ORDERED: POTASSIUM CHLORIDE ORAL LIQUID 20 MEQ/15 ML PO ONE (13:49)
[2022-08-04] MEDS: THIAMINE HCL 200 MG/2 ML VIAL IVPB SCH (15:18)
[2022-08-04] MEDS: MIDAZOLAM IN 0.9 % SOD.CHLORID 100 MG/100 ML PLAST..BAG IVPB SCH (19:00)
[2022-08-04] MEDS: FENTANYL NS IVPB 500 MCG/100 ML BAG IVPB SCH (19:00)
[2022-08-04] MEDS: CHLORHEXIDINE GLUCONATE 4% CLEANSER FOR DECOLONIZATION TP SCH (21:35)
[2022-08-05] MEDS: VANCOMYCIN/WATER FOR INJ (PEG) 750 MG/150 ML BAG IVPB SCH ×2 (00:27→16:45)
[2022-08-05] MEDS: NOREPINEPHRINE BITARTRATE 4,000 MCG in DEXTROSE 5%-WATER - 496 ML IV SCH ×2 (00:29→11:06)
[2022-08-05] MEDS: PIPERACILLIN/TAZOB 3.375 GM 3.375 GM in DEXTROSE 5%-WATER - 50 ML IVPB SCH ×3 (01:39→19:45)
[2022-08-05] MEDS: FENTANYL NS IVPB 500 MCG/100 ML BAG IVPB SCH ×3 (01:39→23:56)
[2022-08-05] MEDS: PROPOFOL 1,000,000 MCG/100 ML VIAL IVPB SCH ×3 (01:41→21:21)
[2022-08-05] MEDS: HEPARIN NA (PORCINE) 5,000 UNITS/ML 1ML VIAL SQ SCH ×3 (05:11→21:21)
[2022-08-05] MEDS: MIDAZOLAM IN 0.9 % SOD.CHLORID 100 MG/100 ML PLAST..BAG IVPB SCH (05:11)
[2022-08-05] MEDS ORDERED: REMDESIVIR 200 MG in SODIUM CHLORIDE 250 ML IVPB SCH (06:00)
[2022-08-05 06:35] LABS: ARTERIAL BLD GAS O2 SATURATION 99.2 % (95-98); ARTERIAL BLOOD GAS BASE EXCESS -6.5 mmol/L (-2-2); ARTERIAL BLOOD GAS PO2 187.1 mmHg (80-100); ARTERIAL BLOOD GAS pH 7.304 (7.350-7.450)
[2022-08-05 06:37] LABS: VENT MODE A/C; VENT RATE 20
[2022-08-05 07:29] LABS: HEMATOCRIT 20.7 % (32.4-45.2); MCH 23.5 pg (25.7-33.7); MCHC 33.6 g/dl (32.0-36.0); MEAN PLT VOLUME 10.1 fl (7.5-11.1); PLATELET COUNT 112 10^3/uL (134-434); RBC 2.95 M/mm3 (3.60-5.2); RDW 17.5 % (11.6-15.6)
[2022-08-05 07:36] LABS: HEMOGLOBIN 6.9 GM/dL (10.7-15.3)
[2022-08-05 07:44] LABS: POTASSIUM 3.6 mmol/L (3.5-5.1)
[2022-08-05 07:49] LABS: ALBUMIN 1.2 g/dl (3.4-5.0); CALCIUM 7.3 mg/dL (8.5-10.1)
[2022-08-05 07:50] LABS: BLOOD UREA NITROGEN 31.2 mg/dL (7-18); MAGNESIUM 2.6 mg/dL (1.8-2.4)
[2022-08-05 07:52] LABS: CREATININE 0.8 mg/dL (0.55-1.3)
[2022-08-05 07:54] LABS: BILIRUBIN,TOTAL 0.4 mg/dL (0.2-1); TOT PROT 5.7 g/dl (6.4-8.2)
[2022-08-05] MEDS ORDERED: POTASSIUM CHLORIDE ORAL LIQUID 20 MEQ/15 ML GT ONE (07:58)
[2022-08-05] MEDS: PANTOPRAZOLE SODIUM 40 MG VIAL IVPUSH SCH (09:10)
[2022-08-05] MEDS: DEXAMETHASONE SOD PHOSPHATE 10 MG/1 ML VIAL IVPUSH SCH (09:10)
[2022-08-05] MEDS: MUPIROCIN 2% TOPICAL OINTMENT FOR DECOLONIZATION NS SCH ×2 (09:11→21:21)
[2022-08-05] MEDS: REMDESIVIR 100 MG in SODIUM CHLORIDE 250 ML IVPB SCH (10:16)
[2022-08-05] MEDS: THIAMINE HCL 200 MG/2 ML VIAL IVPB SCH (10:39)
[2022-08-05] MEDS: AZITHROMYCIN IVPB 500 MG/250 ML BAG IVPB SCH (12:30)
[2022-08-05] MEDS: DEXTROSE 5%-LACTATED RINGERS 1,000 ML IV SCH (16:45)
[2022-08-05 21:06] LABS: HEMATOCRIT 22.8 % (32.4-45.2); HEMOGLOBIN 7.5 GM/dL (10.7-15.3); MCH 23.5 pg (25.7-33.7); MCHC 33.2 g/dl (32.0-36.0); MEAN CELL VOLUME 70.8 fl (80-96); MEAN PLT VOLUME 9.3 fl (7.5-11.1); PLATELET COUNT 109 10^3/uL (134-434); RBC 3.22 M/mm3 (3.60-5.2); RDW 18.6 % (11.6-15.6); WHITE BLOOD COUNT 4.1 K/mm3 (4.0-10.0)
[2022-08-05 21:08] LABS: ANTIGLOMERULAR BASEMENT MEN.AB <0.2 units (0.0-0.9)
[2022-08-05] MEDS: CHLORHEXIDINE GLUCONATE 4% CLEANSER FOR DECOLONIZATION TP SCH (21:22)
[2022-08-06] MEDS: VANCOMYCIN/WATER FOR INJ (PEG) 750 MG/150 ML BAG IVPB SCH ×2 (00:01→13:02)
[2022-08-06] MEDS: PROPOFOL 1,000,000 MCG/100 ML VIAL IVPB SCH ×3 (01:29→18:17)
[2022-08-06] MEDS: PIPERACILLIN/TAZOB 3.375 GM 3.375 GM in DEXTROSE 5%-WATER - 50 ML IVPB SCH ×3 (01:30→17:30)
[2022-08-06] MEDS: DEXTROSE 5%-LACTATED RINGERS 1,000 ML IV SCH ×4 (01:30→18:16)
[2022-08-06] MEDS: HEPARIN NA (PORCINE) 5,000 UNITS/ML 1ML VIAL SQ SCH ×3 (05:11→21:03)
[2022-08-06] MEDS: FENTANYL NS IVPB 500 MCG/100 ML BAG IVPB SCH ×4 (05:12→21:30)
[2022-08-06 08:09] LABS: ALBUMIN 1.2 g/dl (3.4-5.0); CALCIUM 7.5 mg/dL (8.5-10.1)
[2022-08-06 08:10] LABS: BLOOD UREA NITROGEN 34.9 mg/dL (7-18); MAGNESIUM 1.8 mg/dL (1.8-2.4)
[2022-08-06 08:12] LABS: CREATININE 0.6 mg/dL (0.55-1.3)
[2022-08-06 08:13] LABS: PHOSPHOROUS 2.1 mg/dL (2.5-4.9)
[2022-08-06 08:14] LABS: BILIRUBIN,TOTAL 0.3 mg/dL (0.2-1); TOT PROT 5.8 g/dl (6.4-8.2)
[2022-08-06 08:18] LABS: HEMATOCRIT 21.8 % (32.4-45.2); HEMOGLOBIN 7.3 GM/dL (10.7-15.3); MCH 23.6 pg (25.7-33.7); MCHC 33.6 g/dl (32.0-36.0); MEAN CELL VOLUME 70.3 fl (80-96); MEAN PLT VOLUME 9.1 fl (7.5-11.1); RDW 17.7 % (11.6-15.6); WHITE BLOOD COUNT 4.3 K/mm3 (4.0-10.0)
[2022-08-06 08:32] LABS: PLATELET COUNT 101 10^3/uL (134-434)
[2022-08-06] MEDS ORDERED: NAPH,MB-DB/K PH,MBDB POWDER PACKET PO ONE (08:52)
[2022-08-06] MEDS ORDERED: MAGNESIUM 1GM/D5W 100ML - 100 ML IVPB IVPB ONE (08:52)
[2022-08-06] MEDS ORDERED: SODIUM PHOSPHATE - 15 MM in SODIUM CHLORIDE 250 ML IVPB ONE (09:30)
[2022-08-06] MEDS: PANTOPRAZOLE SODIUM 40 MG VIAL IVPUSH SCH (09:36)
[2022-08-06] MEDS: THIAMINE HCL 200 MG/2 ML VIAL IVPB SCH (09:36)
[2022-08-06] MEDS: DEXAMETHASONE SOD PHOSPHATE 10 MG/1 ML VIAL IVPUSH SCH (09:36)
[2022-08-06] MEDS: MUPIROCIN 2% TOPICAL OINTMENT FOR DECOLONIZATION NS SCH ×2 (09:36→21:05)
[2022-08-06] MEDS: REMDESIVIR 100 MG in SODIUM CHLORIDE 250 ML IVPB SCH (09:36)
[2022-08-06] MEDS: NOREPINEPHRINE BITARTRATE 4,000 MCG in DEXTROSE 5%-WATER - 496 ML IV SCH (10:34)
[2022-08-06] MEDS: AZITHROMYCIN IVPB 500 MG/250 ML BAG IVPB SCH (13:02)
[2022-08-06 16:08] LABS: ATYPICAL pANCA <1:20 titer (Neg:<1:20); C-ANCA <1:20 titer (Neg:<1:20)
[2022-08-06] MEDS: CHLORHEXIDINE GLUCONATE 4% CLEANSER FOR DECOLONIZATION TP SCH (21:04)
[2022-08-07] MEDS: FENTANYL NS IVPB 500 MCG/100 ML BAG IVPB SCH ×5 (01:00→23:45)
[2022-08-07] MEDS: PROPOFOL 1,000,000 MCG/100 ML VIAL IVPB SCH ×4 (01:45→16:50)
[2022-08-07] MEDS: VANCOMYCIN/WATER FOR INJ (PEG) 750 MG/150 ML BAG IVPB SCH ×2 (02:00→14:17)
[2022-08-07] MEDS: PIPERACILLIN/TAZOB 3.375 GM 3.375 GM in DEXTROSE 5%-WATER - 50 ML IVPB SCH ×3 (03:06→17:18)
[2022-08-07] MEDS: DEXTROSE 5%-LACTATED RINGERS 1,000 ML IV SCH (03:17)
[2022-08-07] MEDS: HEPARIN NA (PORCINE) 5,000 UNITS/ML 1ML VIAL SQ SCH ×3 (05:10→22:24)
[2022-08-07 07:42] LABS: EOS % 0.2 % (0-4.5); HEMOGLOBIN 7.1 GM/dL (10.7-15.3); LYMPH % 6.8 % (8-40); MCH 23.6 pg (25.7-33.7); MCHC 33.9 g/dl (32.0-36.0); MEAN CELL VOLUME 69.7 fl (80-96); MEAN PLT VOLUME 9.6 fl (7.5-11.1); MONO % 5.5 % (3.8-10.2); NEUT % 87.5 % (42.8-82.8); PLATELET COUNT 126 10^3/uL (134-434); RBC 3.01 M/mm3 (3.60-5.2); RDW 17.7 % (11.6-15.6); WHITE BLOOD COUNT 5.8 K/mm3 (4.0-10.0)
[2022-08-07 08:00] LABS: POTASSIUM 3.5 mmol/L (3.5-5.1)
[2022-08-07 08:12] LABS: CALCIUM 7.1 mg/dL (8.5-10.1)
[2022-08-07 08:13] LABS: ALBUMIN 1.1 g/dl (3.4-5.0); BLOOD UREA NITROGEN 28.8 mg/dL (7-18); MAGNESIUM 1.9 mg/dL (1.8-2.4)
[2022-08-07 08:16] LABS: CREATININE 0.4 mg/dL (0.55-1.3)
[2022-08-07 08:18] LABS: BILIRUBIN,TOTAL 0.4 mg/dL (0.2-1); TOT PROT 5.6 g/dl (6.4-8.2)
[2022-08-07] MEDS ORDERED: POTASSIUM CHLORIDE ORAL LIQUID 20 MEQ/15 ML GT ONE (08:25)
[2022-08-07] MEDS ORDERED: MAGNESIUM SULF 50% (8.12 MEQ/2 ML-1 GM VIAL) IVPB ONE (08:26)
[2022-08-07] MEDS ORDERED: NAPH,MB-DB/K PH,MBDB POWDER PACKET PO ONE (08:27)
[2022-08-07] MEDS: DEXAMETHASONE SOD PHOSPHATE 10 MG/1 ML VIAL IVPUSH SCH (09:10)
[2022-08-07] MEDS: PANTOPRAZOLE SODIUM 40 MG VIAL IVPUSH SCH (09:11)
[2022-08-07] MEDS: THIAMINE HCL 200 MG/2 ML VIAL IVPB SCH (09:11)
[2022-08-07] MEDS: MUPIROCIN 2% TOPICAL OINTMENT FOR DECOLONIZATION NS SCH ×2 (09:39→22:25)
[2022-08-07] MEDS ORDERED: ACETAMINOPHEN INJECTION 100 ML IVPB ONE (10:23)
[2022-08-07] MEDS: DEXMEDETOMIDINE PREMIX 400 MCG/100 ML BAG IVPB SCH ×2 (10:42→17:33)
[2022-08-07] MEDS ORDERED: ACETAMINOPHEN 1000 MG/100 ML BAG IVPB ONE (10:44)
[2022-08-07] MEDS: REMDESIVIR 100 MG in SODIUM CHLORIDE 250 ML IVPB SCH (11:30)
[2022-08-07 12:53] VITALS: BMI 20.5
[2022-08-07] MEDS: AZITHROMYCIN IVPB 500 MG/250 ML BAG IVPB SCH (14:18)
[2022-08-07] MEDS: FLUCONAZOLE 100 MG/NS 50 ML IVPB SCH (14:18)
[2022-08-07] MEDS ORDERED: SULFAMETHOXAZOLE 80 MG/TRIMETHOPRIM 16 MG/ML VIAL IVPB SCH (15:00)
[2022-08-07] MEDS: SULFAMETHOXAZOLE/TRIMETHOPRIM 160 MG in DEXTROSE 5%-WATER - 250 ML IVPB SCH (17:18)
[2022-08-07] MEDS: NOREPINEPHRINE BITARTRATE 4,000 MCG in DEXTROSE 5%-WATER - 496 ML IV SCH (19:15)
[2022-08-07] MEDS: CHLORHEXIDINE GLUCONATE 4% CLEANSER FOR DECOLONIZATION TP SCH (22:25)
[2022-08-08] MEDS: VANCOMYCIN/WATER FOR INJ (PEG) 750 MG/150 ML BAG IVPB SCH ×2 (01:36→13:40)
[2022-08-08] MEDS: PIPERACILLIN/TAZOB 3.375 GM 3.375 GM in DEXTROSE 5%-WATER - 50 ML IVPB SCH ×3 (02:34→18:34)
[2022-08-08] MEDS ORDERED: fentaNYL CITRATE 250 MCG/5 ML VIAL ONE (03:44)
[2022-08-08] MEDS: HEPARIN NA (PORCINE) 5,000 UNITS/ML 1ML VIAL SQ SCH ×3 (05:56→21:46)
[2022-08-08] MEDS ORDERED: ACETAMINOPHEN 1000 MG/100 ML BAG IVPB PRN (06:24)
[2022-08-08 07:35] LABS: HEMATOCRIT 19.2 % (32.4-45.2); MCH 24.3 pg (25.7-33.7); MCHC 34.7 g/dl (32.0-36.0); MEAN CELL VOLUME 70.1 fl (80-96); MEAN PLT VOLUME 9.8 fl (7.5-11.1); PLATELET COUNT 137 10^3/uL (134-434); RBC 2.74 M/mm3 (3.60-5.2); RDW 17.7 % (11.6-15.6)
[2022-08-08 07:43] LABS: HEMOGLOBIN 6.6 GM/dL (10.7-15.3)
[2022-08-08 07:56] LABS: CHLORIDE 116 mmol/L (98-107); POTASSIUM 3.4 mmol/L (3.5-5.1); SODIUM 145 mmol/L (136-145)
[2022-08-08 08:04] LABS: ALBUMIN 1.1 g/dl (3.4-5.0); ANION GAP 2 MMOL/L (8-16); CO2 27 mmol/L (21-32); GLUCOSE,RANDOM 84 mg/dL (74-106); MAGNESIUM 1.6 mg/dL (1.8-2.4)
[2022-08-08 08:06] LABS: PHOSPHOROUS 2.4 mg/dL (2.5-4.9); SGOT/AST 45 U/L (15-37); SGPT/ALT 22 U/L (13-61)
[2022-08-08] MEDS ORDERED: MAGNESIUM SULF 50% (8.12 MEQ/2 ML-1 GM VIAL) IVPB ONE (08:06)
[2022-08-08 08:07] LABS: CREATININE 0.3 mg/dL (0.55-1.3)
[2022-08-08 08:08] LABS: BILIRUBIN,TOTAL 0.6 mg/dL (0.2-1); TOT PROT 5.4 g/dl (6.4-8.2)
[2022-08-08 08:09] LABS: ALK PHOS 106 U/L (45-117)
[2022-08-08 08:31] LABS: CALCIUM 6.8 mg/dL (8.5-10.1)
[2022-08-08] MEDS ORDERED: KCL 20 MEQ PREMIX BAG 100 ML IVPB ONE (09:10)
[2022-08-08] MEDS: DEXAMETHASONE SOD PHOSPHATE 10 MG/1 ML VIAL IVPUSH SCH (09:28)
[2022-08-08] MEDS: PANTOPRAZOLE SODIUM 40 MG VIAL IVPUSH SCH (09:28)
[2022-08-08] MEDS: AMINO ACIDS/PROTEIN HYDROLYS 30 ML LIQUID.PKT PO SCH (09:28)
[2022-08-08] MEDS: REMDESIVIR 100 MG in SODIUM CHLORIDE 250 ML IVPB SCH (09:29)
[2022-08-08] MEDS: SULFAMETHOXAZOLE/TRIMETHOPRIM 160 MG in DEXTROSE 5%-WATER - 250 ML IVPB SCH (09:29)
[2022-08-08] MEDS: FLUCONAZOLE 100 MG/NS 50 ML IVPB SCH (09:29)
[2022-08-08] MEDS: MUPIROCIN 2% TOPICAL OINTMENT FOR DECOLONIZATION NS SCH (09:30)
[2022-08-08] MEDS ORDERED: MAGNESIUM SULF 50% (8.12 MEQ/2 ML-1 GM VIAL) ONE (12:14)
[2022-08-08] MEDS: AZITHROMYCIN IVPB 500 MG/250 ML BAG IVPB SCH (12:22)
[2022-08-08] MEDS: FENTANYL NS IVPB 500 MCG/100 ML BAG IVPB SCH ×3 (12:55→21:47)
[2022-08-08] MEDS ORDERED: SULFAMETHOXAZOLE 80 MG/TRIMETHOPRIM 16 MG/ML VIAL IVPB SCH (13:00)
[2022-08-08] MEDS: SULFAMETHOXAZOLE/TRIMETHOPRIM 300 MG in DEXTROSE 5%-WATER - 500 ML IVPB SCH ×2 (15:00→21:46)
[2022-08-08] MEDS: DEXMEDETOMIDINE PREMIX 400 MCG/100 ML BAG IVPB SCH (15:54)
[2022-08-08] MEDS: PROPOFOL 1,000,000 MCG/100 ML VIAL IVPB SCH ×2 (15:55→20:03)
[2022-08-08 21:44] LABS: HEMATOCRIT 25.5 % (32.4-45.2); HEMOGLOBIN 8.8 GM/dL (10.7-15.3); MCH 25.4 pg (25.7-33.7); MCHC 34.5 g/dl (32.0-36.0); MEAN CELL VOLUME 73.6 fl (80-96); MEAN PLT VOLUME 9.8 fl (7.5-11.1); PLATELET COUNT 144 10^3/uL (134-434); RBC 3.47 M/mm3 (3.60-5.2); RDW 20.4 % (11.6-15.6); WHITE BLOOD COUNT 4.5 K/mm3 (4.0-10.0)
[2022-08-08] MEDS: CHLORHEXIDINE GLUCONATE 4% CLEANSER FOR DECOLONIZATION TP SCH (21:46)
[2022-08-09] MEDS: VANCOMYCIN/WATER FOR INJ (PEG) 750 MG/150 ML BAG IVPB SCH ×2 (00:53→13:40)
[2022-08-09] MEDS: NOREPINEPHRINE BITARTRATE 4,000 MCG in DEXTROSE 5%-WATER - 496 ML IV SCH ×2 (00:54→14:15)
[2022-08-09] MEDS: PIPERACILLIN/TAZOB 3.375 GM 3.375 GM in DEXTROSE 5%-WATER - 50 ML IVPB SCH ×3 (01:02→17:50)
[2022-08-09] MEDS: PROPOFOL 1,000,000 MCG/100 ML VIAL IVPB SCH ×4 (01:02→23:19)
[2022-08-09] MEDS: HEPARIN NA (PORCINE) 5,000 UNITS/ML 1ML VIAL SQ SCH ×3 (06:10→22:13)
[2022-08-09] MEDS: SULFAMETHOXAZOLE/TRIMETHOPRIM 300 MG in DEXTROSE 5%-WATER - 500 ML IVPB SCH ×3 (06:48→22:13)
[2022-08-09 06:50] LABS: ARTERIAL BLD GAS O2 SATURATION 95.6 % (95-98); ARTERIAL BLOOD GAS BASE EXCESS -2.1 mmol/L (-2-2); ARTERIAL BLOOD GAS PO2 77.1 mmHg (80-100)
[2022-08-09 07:01] LABS: ALLENS TEST POSITIVE; VENT MODE AC; VENT RATE 16
[2022-08-09 07:33] LABS: HEMOGLOBIN 8.3 GM/dL (10.7-15.3); MCH 25.1 pg (25.7-33.7); MCHC 34.7 g/dl (32.0-36.0); MEAN CELL VOLUME 72.5 fl (80-96); PLATELET COUNT 169 10^3/uL (134-434); RBC 3.31 M/mm3 (3.60-5.2); RDW 19.2 % (11.6-15.6); WHITE BLOOD COUNT 5.5 K/mm3 (4.0-10.0)
[2022-08-09 07:46] LABS: POTASSIUM 3.7 mmol/L (3.5-5.1)
[2022-08-09 07:50] LABS: ALBUMIN 1.1 g/dl (3.4-5.0); CALCIUM 7.4 mg/dL (8.5-10.1)
[2022-08-09 07:51] LABS: MAGNESIUM 2.3 mg/dL (1.8-2.4)
[2022-08-09 07:53] LABS: PHOSPHOROUS 3.6 mg/dL (2.5-4.9)
[2022-08-09 07:54] LABS: CREATININE 0.3 mg/dL (0.55-1.3)
[2022-08-09 07:55] LABS: BILIRUBIN,TOTAL 0.2 mg/dL (0.2-1); TOT PROT 5.5 g/dl (6.4-8.2)
[2022-08-09] MEDS: DEXAMETHASONE SOD PHOSPHATE 10 MG/1 ML VIAL IVPUSH SCH (10:21)
[2022-08-09] MEDS: FLUCONAZOLE 100 MG/NS 50 ML IVPB SCH (10:21)
[2022-08-09] MEDS: AMINO ACIDS/PROTEIN HYDROLYS 30 ML LIQUID.PKT PO SCH (10:21)
[2022-08-09] MEDS: DEXMEDETOMIDINE PREMIX 400 MCG/100 ML BAG IVPB SCH ×2 (10:23→23:19)
[2022-08-09] MEDS: FENTANYL NS IVPB 500 MCG/100 ML BAG IVPB SCH ×3 (10:25→21:04)
[2022-08-09] MEDS: PANTOPRAZOLE SODIUM 40 MG VIAL IVPUSH SCH (11:51)
[2022-08-09] MEDS ORDERED: FUROSEMIDE 40 MG/4 ML INJECTABLE VIAL IVPUSH ONE (13:02)
[2022-08-09] MEDS: AZITHROMYCIN IVPB 500 MG/250 ML BAG IVPB SCH (13:40)
[2022-08-09] MEDS ORDERED: ACETAMINOPHEN INJECTION 100 ML IVPB ONE (15:47)
[2022-08-09] MEDS: CHLORHEXIDINE GLUCONATE 4% CLEANSER FOR DECOLONIZATION TP SCH (22:11)
[2022-08-10] MEDS: VANCOMYCIN/WATER FOR INJ (PEG) 750 MG/150 ML BAG IVPB SCH ×2 (01:19→12:49)
[2022-08-10] MEDS: PIPERACILLIN/TAZOB 3.375 GM 3.375 GM in DEXTROSE 5%-WATER - 50 ML IVPB SCH ×3 (01:21→17:14)
[2022-08-10] MEDS: FENTANYL NS IVPB 500 MCG/100 ML BAG IVPB SCH ×2 (03:05→08:02)
[2022-08-10] MEDS: PROPOFOL 1,000,000 MCG/100 ML VIAL IVPB SCH (05:00)
[2022-08-10] MEDS: SULFAMETHOXAZOLE/TRIMETHOPRIM 300 MG in DEXTROSE 5%-WATER - 500 ML IVPB SCH ×3 (05:01→22:34)
[2022-08-10] MEDS: HEPARIN NA (PORCINE) 5,000 UNITS/ML 1ML VIAL SQ SCH ×3 (05:01→22:34)
[2022-08-10 07:50] LABS: HEMOGLOBIN 8.6 GM/dL (10.7-15.3); MCHC 34.2 g/dl (32.0-36.0); MEAN CELL VOLUME 73.1 fl (80-96); MEAN PLT VOLUME 9.1 fl (7.5-11.1); PLATELET COUNT 205 10^3/uL (134-434); RBC 3.43 M/mm3 (3.60-5.2); RDW 19.5 % (11.6-15.6); WHITE BLOOD COUNT 6.8 K/mm3 (4.0-10.0)
[2022-08-10 08:01] LABS: POTASSIUM 3.9 mmol/L (3.5-5.1)
[2022-08-10] MEDS: DEXMEDETOMIDINE PREMIX 400 MCG/100 ML BAG IVPB SCH ×2 (08:01→17:17)
[2022-08-10] MEDS: AMINO ACIDS/PROTEIN HYDROLYS 30 ML LIQUID.PKT PO SCH (08:01)
[2022-08-10 08:07] LABS: ALBUMIN 1.2 g/dl (3.4-5.0); BLOOD UREA NITROGEN 14.2 mg/dL (7-18); CALCIUM 7.1 mg/dL (8.5-10.1); MAGNESIUM 1.7 mg/dL (1.8-2.4)
[2022-08-10 08:10] LABS: CREATININE 0.3 mg/dL (0.55-1.3)
[2022-08-10 08:11] LABS: BILIRUBIN,TOTAL 0.9 mg/dL (0.2-1); TOT PROT 5.7 g/dl (6.4-8.2)
[2022-08-10] MEDS ORDERED: MAGNESIUM 2GM/50ML STERILE WATER IVPB IVPB ONE (09:00)
[2022-08-10] MEDS: PANTOPRAZOLE SODIUM 40 MG VIAL IVPUSH SCH (09:19)
[2022-08-10] MEDS: DEXAMETHASONE SOD PHOSPHATE 10 MG/1 ML VIAL IVPUSH SCH (09:19)
[2022-08-10] MEDS: FLUCONAZOLE 100 MG/NS 50 ML IVPB SCH (10:35)
[2022-08-10] MEDS ORDERED: MAGNESIUM SULF 50% (8.12 MEQ/2 ML-1 GM VIAL) IVPB ONE (12:47)
[2022-08-10] MEDS: AZITHROMYCIN IVPB 500 MG/250 ML BAG IVPB SCH (12:49)
[2022-08-10] MEDS ORDERED: LORazepam 2 MG/ML SDV VIAL IVPUSH ONE (14:08)
[2022-08-10] MEDS ORDERED: LORazepam 2 MG/ML SDV VIAL IVPUSH PRN ×2 (14:17→14:20)
[2022-08-10] MEDS ORDERED: ACETAMINOPHEN 1000 MG/100 ML BAG IVPB ONE (15:48)
[2022-08-10] MEDS: diazePAM CARPU-JECT 10 MG/2 ML DISP.SYRIN IVPUSH SCH ×2 (15:55→22:34)
[2022-08-10 16:27] LABS: ARTERIAL BLD GAS O2 SATURATION 99.2 % (95-98); ARTERIAL BLOOD GAS BASE EXCESS 2.2 mmol/L (-2-2); ARTERIAL BLOOD GAS PO2 158.1 mmHg (80-100); ARTERIAL BLOOD GAS pH 7.477 (7.350-7.450)
[2022-08-10 16:30] LABS: ALLENS TEST POSITIVE; VENT MODE IPAP; VENT RATE 70
[2022-08-10] MEDS: CHLORHEXIDINE GLUCONATE 4% CLEANSER FOR DECOLONIZATION TP SCH (22:34)
[2022-08-11] MEDS: DEXMEDETOMIDINE PREMIX 400 MCG/100 ML BAG IVPB SCH ×3 (00:23→18:12)
[2022-08-11] MEDS: PIPERACILLIN/TAZOB 3.375 GM 3.375 GM in DEXTROSE 5%-WATER - 50 ML IVPB SCH ×3 (01:17→17:06)
[2022-08-11] MEDS: HEPARIN NA (PORCINE) 5,000 UNITS/ML 1ML VIAL SQ SCH ×3 (05:11→21:26)
[2022-08-11] MEDS: SULFAMETHOXAZOLE/TRIMETHOPRIM 300 MG in DEXTROSE 5%-WATER - 500 ML IVPB SCH ×3 (06:13→22:33)
[2022-08-11] MEDS: LORazepam 2 MG/ML SDV VIAL IVPUSH PRN (07:24)
[2022-08-11 07:37] LABS: HEMATOCRIT 29.4 % (32.4-45.2); MCH 25.3 pg (25.7-33.7); MCHC 34.1 g/dl (32.0-36.0); MEAN CELL VOLUME 74.1 fl (80-96); MEAN PLT VOLUME 9.6 fl (7.5-11.1); PLATELET COUNT 247 10^3/uL (134-434); RBC 3.97 M/mm3 (3.60-5.2); RDW 20.4 % (11.6-15.6); WHITE BLOOD COUNT 10.4 K/mm3 (4.0-10.0)
[2022-08-11 07:57] LABS: POTASSIUM 3.7 mmol/L (3.5-5.1)
[2022-08-11 08:01] LABS: BLOOD UREA NITROGEN 8.7 mg/dL (7-18); CALCIUM 7.7 mg/dL (8.5-10.1); MAGNESIUM 2.1 mg/dL (1.8-2.4)
[2022-08-11 08:05] LABS: CREATININE 0.4 mg/dL (0.55-1.3); PHOSPHOROUS 2.8 mg/dL (2.5-4.9)
[2022-08-11 08:06] LABS: BILIRUBIN,TOTAL 0.6 mg/dL (0.2-1); TOT PROT 6.6 g/dl (6.4-8.2)
[2022-08-11 08:07] LABS: ALBUMIN 1.5 g/dl (3.4-5.0)
[2022-08-11] MEDS ORDERED: morphine SULFATE 4 MG/ML VIAL IVPUSH ONE (08:31)
[2022-08-11] MEDS ORDERED: morphine SULFATE 4 MG/ML VIAL ONE (08:42)
[2022-08-11] MEDS ORDERED: FUROSEMIDE 40 MG/4 ML INJECTABLE VIAL IVPUSH ONE (08:49)
[2022-08-11] MEDS ORDERED: FUROSEMIDE 40 MG/4 ML INJECTABLE VIAL ONE (08:50)
[2022-08-11] MEDS: AMINO ACIDS/PROTEIN HYDROLYS 30 ML LIQUID.PKT PO SCH (08:53)
[2022-08-11] MEDS ORDERED: HYDROmorphone HCl 2 MG/ML VIAL IVPUSH ONE (09:01)
[2022-08-11] MEDS ORDERED: RAPID SEQUENCE INTUBATION KIT NR ONE (09:06)
[2022-08-11] MEDS ORDERED: MIDAZOLAM HCL 5 MG/1 ML Single Dose Vial IVPUSH ONE (09:08)
[2022-08-11] MEDS ORDERED: MIDAZOLAM HCL 5 MG/1 ML Single Dose Vial ONE (09:08)
[2022-08-11] MEDS ORDERED: MIDAZOLAM 100 MG in SODIUM CHLORIDE 100 ML IVPB SCH (09:30)
[2022-08-11] MEDS ORDERED: MIDAZOLAM IN 0.9 % SOD.CHLORID 1 MG/1 ML PLAST..BAG ONE (09:31)
[2022-08-11] MEDS ORDERED: PROPOFOL 1,000,000 MCG/100 ML VIAL ONE (09:31)
[2022-08-11] MEDS ORDERED: FENTANYL NS IVPB 500 MCG/100 ML BAG IVPB ONE (09:31)
[2022-08-11] MEDS: PROPOFOL 1,000,000 MCG/100 ML VIAL IVPB SCH ×3 (09:40→21:24)
[2022-08-11] MEDS: MIDAZOLAM IN 0.9 % SOD.CHLORID 100 MG/100 ML PLAST..BAG IVPB SCH (09:53)
[2022-08-11] MEDS: FENTANYL NS IVPB 500 MCG/100 ML BAG IVPB SCH ×3 (09:54→21:23)
[2022-08-11] MEDS ORDERED: ACETAMINOPHEN 1000 MG/100 ML BAG IVPB ONE (10:23)
[2022-08-11 10:24] LABS: ARTERIAL BLD GAS O2 SATURATION 99.2 % (95-98); ARTERIAL BLOOD GAS BASE EXCESS 2.7 mmol/L (-2-2); ARTERIAL BLOOD GAS PO2 178.5 mmHg (80-100); ARTERIAL BLOOD GAS pH 7.421 (7.350-7.450)
[2022-08-11] MEDS: PANTOPRAZOLE SODIUM 40 MG VIAL IVPUSH SCH (10:28)
[2022-08-11] MEDS: DEXAMETHASONE SOD PHOSPHATE 10 MG/1 ML VIAL IVPUSH SCH (10:28)
[2022-08-11 10:34] LABS: ALLENS TEST POSITIVE
[2022-08-11 10:38] LABS: VENT MODE A/C; VENT RATE 24
[2022-08-11] MEDS: diazePAM CARPU-JECT 10 MG/2 ML DISP.SYRIN IVPUSH SCH (11:05)
[2022-08-11] MEDS: FLUCONAZOLE 200 MG/NS 100 ML IVPB SCH (17:47)
[2022-08-11] MEDS: CHLORHEXIDINE GLUCONATE 4% CLEANSER FOR DECOLONIZATION TP SCH (21:26)
[2022-08-12] MEDS: PIPERACILLIN/TAZOB 3.375 GM 3.375 GM in DEXTROSE 5%-WATER - 50 ML IVPB SCH ×3 (01:39→17:37)
[2022-08-12] MEDS ORDERED: FENTANYL NS IVPB 500 MCG/100 ML BAG IVPB ONE (02:05)
[2022-08-12] MEDS: FENTANYL NS IVPB 500 MCG/100 ML BAG IVPB SCH ×4 (02:06→21:13)
[2022-08-12] MEDS: MIDAZOLAM IN 0.9 % SOD.CHLORID 100 MG/100 ML PLAST..BAG IVPB SCH ×2 (06:00→21:12)
[2022-08-12] MEDS: HEPARIN NA (PORCINE) 5,000 UNITS/ML 1ML VIAL SQ SCH ×3 (06:28→21:11)
[2022-08-12] MEDS: SULFAMETHOXAZOLE/TRIMETHOPRIM 300 MG in DEXTROSE 5%-WATER - 500 ML IVPB SCH ×3 (06:28→21:42)
[2022-08-12] MEDS: DEXMEDETOMIDINE PREMIX 400 MCG/100 ML BAG IVPB SCH ×2 (06:56→21:13)
[2022-08-12] MEDS ORDERED: LACTATED RINGERS IV ONE (07:26)
[2022-08-12] MEDS ORDERED: POTASSIUM CHLORIDE IV ONE (07:26)
[2022-08-12] MEDS ORDERED: LACTATED RINGERS SOLUTION 1000 ML INFUS.BAG IV ONE (07:50)
[2022-08-12 07:51] LABS: HEMATOCRIT 22.1 % (32.4-45.2); HEMOGLOBIN 7.5 GM/dL (10.7-15.3); MCH 25.6 pg (25.7-33.7); MCHC 34.1 g/dl (32.0-36.0); MEAN CELL VOLUME 75.1 fl (80-96); PLATELET COUNT 197 10^3/uL (134-434); RBC 2.94 M/mm3 (3.60-5.2); RDW 20.6 % (11.6-15.6); WHITE BLOOD COUNT 5.2 K/mm3 (4.0-10.0)
[2022-08-12] MEDS: AMINO ACIDS/PROTEIN HYDROLYS 30 ML LIQUID.PKT PO SCH ×2 (08:11→09:15)
[2022-08-12] MEDS ORDERED: POTASSIUM CHLORIDE ORAL LIQUID 20 MEQ/15 ML PO ONE (08:12)
[2022-08-12] MEDS ORDERED: KCL 10 MEQ IVPB 10 MEQ/100 ML INFUS.BAG IVPB SCH (08:15)
[2022-08-12 08:57] LABS: POTASSIUM 3.8 mmol/L (3.5-5.1)
[2022-08-12 09:02] LABS: CALCIUM 7.8 mg/dL (8.5-10.1); MAGNESIUM 2.1 mg/dL (1.8-2.4)
[2022-08-12 09:03] LABS: BLOOD UREA NITROGEN 14.6 mg/dL (7-18)
[2022-08-12 09:05] LABS: CREATININE 0.3 mg/dL (0.55-1.3)
[2022-08-12 09:06] LABS: PHOSPHOROUS 3.1 mg/dL (2.5-4.9)
[2022-08-12 09:07] LABS: TOT PROT 5.5 g/dl (6.4-8.2)
[2022-08-12 09:09] LABS: BILIRUBIN,TOTAL 0.4 mg/dL (0.2-1)
[2022-08-12 09:10] LABS: ALBUMIN 1.2 g/dl (3.4-5.0)
[2022-08-12] MEDS: DEXAMETHASONE SOD PHOSPHATE 10 MG/1 ML VIAL IVPUSH SCH (09:15)
[2022-08-12] MEDS: PANTOPRAZOLE SODIUM 40 MG VIAL IVPUSH SCH (09:15)
[2022-08-12] MEDS ORDERED: ALBUTEROL SO4 2.5/IPRATROPIUM 0.5 INH SOL 3 ML VIAL.NEB. NEB PRN (10:02)
[2022-08-12] MEDS: FLUCONAZOLE 200 MG/NS 100 ML IVPB SCH (10:06)
[2022-08-12] MEDS: PROPOFOL 1,000,000 MCG/100 ML VIAL IVPB SCH ×2 (10:14→21:13)
[2022-08-12] MEDS: COLLAGENASE CLOSTRIDIUM HIST. 30 GRAMS TUBE TP SCH (15:15)
[2022-08-12 15:46] LABS: HIV INTERPRETATION PRESUMPTIVE POSITIVE (NEGATIVE)
[2022-08-12] MEDS ORDERED: ACETAMINOPHEN 1000 MG/100 ML BAG IVPB ONE (16:15)
[2022-08-12] MEDS: ASCORBIC ACID 500 MG TABLET (FP) PO SCH (21:11)
[2022-08-12] MEDS: CHLORHEXIDINE GLUCONATE 4% CLEANSER FOR DECOLONIZATION TP SCH (21:11)
[2022-08-13] MEDS: PIPERACILLIN/TAZOB 3.375 GM 3.375 GM in DEXTROSE 5%-WATER - 50 ML IVPB SCH ×3 (02:40→17:08)
[2022-08-13] MEDS ORDERED: fentaNYL CITRATE 250 MCG/5 ML VIAL ONE (04:39)
[2022-08-13] MEDS: SULFAMETHOXAZOLE/TRIMETHOPRIM 300 MG in DEXTROSE 5%-WATER - 500 ML IVPB SCH ×3 (06:16→22:36)
[2022-08-13] MEDS: HEPARIN NA (PORCINE) 5,000 UNITS/ML 1ML VIAL SQ SCH ×3 (06:19→22:36)
[2022-08-13 07:37] LABS: HEMATOCRIT 25.9 % (32.4-45.2); HEMOGLOBIN 8.7 GM/dL (10.7-15.3); MCHC 33.5 g/dl (32.0-36.0); MEAN CELL VOLUME 74.7 fl (80-96); MEAN PLT VOLUME 8.8 fl (7.5-11.1); PLATELET COUNT 234 10^3/uL (134-434); RBC 3.47 M/mm3 (3.60-5.2); RDW 21.1 % (11.6-15.6)
[2022-08-13 07:58] LABS: POTASSIUM 3.8 mmol/L (3.5-5.1)
[2022-08-13 08:12] LABS: ALBUMIN 1.3 g/dl (3.4-5.0); BLOOD UREA NITROGEN 14.5 mg/dL (7-18); CREATININE 0.4 mg/dL (0.55-1.3); PHOSPHOROUS 2.8 mg/dL (2.5-4.9)
[2022-08-13 08:13] LABS: TOT PROT 6.1 g/dl (6.4-8.2)
[2022-08-13 08:14] LABS: CALCIUM 7.3 mg/dL (8.5-10.1)
[2022-08-13 08:15] LABS: MAGNESIUM 1.9 mg/dL (1.8-2.4)
[2022-08-13 08:18] LABS: BILIRUBIN,TOTAL 0.3 mg/dL (0.2-1)
[2022-08-13] MEDS: DEXAMETHASONE SOD PHOSPHATE 10 MG/1 ML VIAL IVPUSH SCH (09:42)
[2022-08-13] MEDS: PANTOPRAZOLE SODIUM 40 MG VIAL IVPUSH SCH (09:42)
[2022-08-13] MEDS: AMINO ACIDS/PROTEIN HYDROLYS 30 ML LIQUID.PKT GT SCH (09:43)
[2022-08-13] MEDS: COLLAGENASE CLOSTRIDIUM HIST. 30 GRAMS TUBE TP SCH (09:43)
[2022-08-13] MEDS: MULTIVITAMINS (DAILY MVI) TABLET (FP) PO SCH (09:43)
[2022-08-13] MEDS: ZINC SULFATE 220 MG CAPSULE (FP) GT SCH (09:43)
[2022-08-13] MEDS: ASCORBIC ACID 500 MG TABLET (FP) PO SCH ×2 (09:43→22:36)
[2022-08-13] MEDS ORDERED: ZINC SULFATE 220 MG CAPSULE (FP) PO SCH (10:00)
[2022-08-13] MEDS ORDERED: clonazePAM 0.5 MG TABLET PO SCH ×2 (11:00→12:00)
[2022-08-13] MEDS: FLUCONAZOLE 200 MG/NS 100 ML IVPB SCH (11:03)
[2022-08-13] MEDS: morphine SULFATE 4 MG/ML VIAL IVPUSH SCH ×3 (11:42→20:10)
[2022-08-13] MEDS: LORazepam 2 MG/ML SDV VIAL IVPUSH SCH ×3 (11:42→23:12)
[2022-08-13] MEDS: DEXMEDETOMIDINE PREMIX 400 MCG/100 ML BAG IVPB SCH (13:50)
[2022-08-13 18:53] LABS: EPI CELLS 2 /uL (0-25.1); HYALINE CASTS 0 /uL (0-3.1); PH,URINE 7.5 (5.0-8.0); URINE APPEARANCE CLEAR; URINE BACTERIA 4 /uL (0-1359); URINE BILIRUBIN NEGATIVE (NEGATIVE); URINE COLOR YELLOW; URINE GLUCOSE (UA) NEGATIVE (NEGATIVE); URINE KETONE NEGATIVE (NEGATIVE); URINE LEUK ESTERASE TRACE (NEGATIVE); URINE NITRITE NEGATIVE (NEGATIVE); URINE PROTEIN NEGATIVE (NEGATIVE); URINE RBC 91 /uL (0-23.9); URINE UROBILINOGEN 0.2 mg/dL (0.2-1.0); URINE WBC 6 /uL (0-25.8)
[2022-08-13] MEDS: LORazepam 2 MG/ML SDV VIAL IVPUSH PRN (23:13)
[2022-08-14] MEDS: morphine SULFATE 4 MG/ML VIAL IVPUSH SCH ×6 (00:08→20:27)
[2022-08-14] MEDS: DEXMEDETOMIDINE PREMIX 400 MCG/100 ML BAG IVPB SCH (02:20)
[2022-08-14] MEDS: PIPERACILLIN/TAZOB 3.375 GM 3.375 GM in DEXTROSE 5%-WATER - 50 ML IVPB SCH ×3 (02:21→17:45)
[2022-08-14] MEDS ORDERED: ACETAMINOPHEN 1000 MG/100 ML BAG IVPB ONE (03:49)
[2022-08-14] MEDS: CHLORHEXIDINE GLUCONATE 4% CLEANSER FOR DECOLONIZATION TP SCH ×2 (04:03→21:41)
[2022-08-14] MEDS: HEPARIN NA (PORCINE) 5,000 UNITS/ML 1ML VIAL SQ SCH ×3 (05:58→21:39)
[2022-08-14] MEDS: LORazepam 2 MG/ML SDV VIAL IVPUSH SCH ×2 (05:59→10:59)
[2022-08-14] MEDS: SULFAMETHOXAZOLE/TRIMETHOPRIM 300 MG in DEXTROSE 5%-WATER - 500 ML IVPB SCH ×3 (06:46→21:39)
[2022-08-14 07:26] LABS: HEMATOCRIT 22.5 % (32.4-45.2); HEMOGLOBIN 7.6 GM/dL (10.7-15.3); MCHC 33.7 g/dl (32.0-36.0); MEAN CELL VOLUME 74.2 fl (80-96); MEAN PLT VOLUME 9.2 fl (7.5-11.1); PLATELET COUNT 249 10^3/uL (134-434); RBC 3.03 M/mm3 (3.60-5.2); RDW 20.4 % (11.6-15.6); WHITE BLOOD COUNT 5.2 K/mm3 (4.0-10.0)
[2022-08-14 07:50] LABS: CALCIUM 7.1 mg/dL (8.5-10.1)
[2022-08-14 07:51] LABS: ALBUMIN 1.5 g/dl (3.4-5.0); MAGNESIUM 1.8 mg/dL (1.8-2.4)
[2022-08-14 07:54] LABS: CREATININE 0.4 mg/dL (0.55-1.3); PHOSPHOROUS 1.7 mg/dL (2.5-4.9); TOT PROT 6.3 g/dl (6.4-8.2)
[2022-08-14 07:55] LABS: BILIRUBIN,TOTAL 0.4 mg/dL (0.2-1)
[2022-08-14] MEDS ORDERED: POTASSIUM PHOSPHATE 30 MM in SODIUM CHLORIDE 250 ML IVPB ONE (08:13)
[2022-08-14] MEDS: AMINO ACIDS/PROTEIN HYDROLYS 30 ML LIQUID.PKT GT SCH (08:22)
[2022-08-14] MEDS: KCL 10 MEQ IVPB 10 MEQ/100 ML INFUS.BAG IVPB SCH ×3 (08:24→10:10)
[2022-08-14] MEDS ORDERED: LACTATED RINGERS SOLUTION 1000 ML INFUS.BAG IV ONE (08:39)
[2022-08-14] MEDS: MIDAZOLAM IN 0.9 % SOD.CHLORID 100 MG/100 ML PLAST..BAG IVPB SCH (09:10)
[2022-08-14] MEDS: PROPOFOL 1,000,000 MCG/100 ML VIAL IVPB SCH (09:10)
[2022-08-14] MEDS: DEXAMETHASONE SOD PHOSPHATE 10 MG/1 ML VIAL IVPUSH SCH (10:10)
[2022-08-14] MEDS: PANTOPRAZOLE SODIUM 40 MG VIAL IVPUSH SCH (10:10)
[2022-08-14] MEDS: FLUCONAZOLE 200 MG/NS 100 ML IVPB SCH (10:10)
[2022-08-14] MEDS: BICTEGRAV/EMTRICIT/TENOFOV (BIKTARVY) 50-200-25 MG TABLET PO SCH (10:59)
[2022-08-14] MEDS: MULTIVITAMINS (DAILY MVI) TABLET (FP) PO SCH (11:00)
[2022-08-14] MEDS: ASCORBIC ACID 500 MG TABLET (FP) PO SCH ×2 (11:00→21:39)
[2022-08-14] MEDS: COLLAGENASE CLOSTRIDIUM HIST. 30 GRAMS TUBE TP SCH (11:00)
[2022-08-14] MEDS: ZINC SULFATE 220 MG CAPSULE (FP) GT SCH (11:00)
[2022-08-14 12:15] LABS: CALCIUM 7.3 mg/dL (8.5-10.1)
[2022-08-14 12:16] LABS: BLOOD UREA NITROGEN 5.2 mg/dL (7-18)
[2022-08-14 12:19] LABS: CREATININE 0.3 mg/dL (0.55-1.3)
[2022-08-14 12:51] LABS: EPI CELLS 10 /uL (0-25.1); HYALINE CASTS 0 /uL (0-3.1); URINE APPEARANCE CLEAR; URINE BACTERIA 21 /uL (0-1359); URINE BILIRUBIN NEGATIVE (NEGATIVE); URINE COLOR YELLOW; URINE GLUCOSE (UA) NEGATIVE (NEGATIVE); URINE KETONE NEGATIVE (NEGATIVE); URINE LEUK ESTERASE TRACE (NEGATIVE); URINE NITRITE NEGATIVE (NEGATIVE); URINE PROTEIN NEGATIVE (NEGATIVE); URINE RBC 175 /uL (0-23.9); URINE UROBILINOGEN 0.2 mg/dL (0.2-1.0); URINE WBC 31 /uL (0-25.8)
[2022-08-14 13:30] LABS: MAGNESIUM 1.9 mg/dL (1.8-2.4)
[2022-08-14] MEDS: LORazepam 2 MG/ML SDV VIAL IVPUSH PRN ×2 (17:45→22:49)
[2022-08-14] MEDS: clonazePAM 0.5 MG TABLET PO SCH (21:39)
[2022-08-14] MEDS ORDERED: ALPRAZolam 2 MG TABLET PO SCH (22:00)
[2022-08-15] MEDS: PIPERACILLIN/TAZOB 3.375 GM 3.375 GM in DEXTROSE 5%-WATER - 50 ML IVPB SCH ×3 (02:01→17:20)
[2022-08-15] MEDS: morphine SULFATE 4 MG/ML VIAL IVPUSH SCH ×5 (02:01→23:54)
[2022-08-15] MEDS: LORazepam 2 MG/ML SDV VIAL IVPUSH PRN ×3 (04:55→20:32)
[2022-08-15] MEDS: SULFAMETHOXAZOLE/TRIMETHOPRIM 300 MG in DEXTROSE 5%-WATER - 500 ML IVPB SCH ×3 (06:10→22:45)
[2022-08-15] MEDS: HEPARIN NA (PORCINE) 5,000 UNITS/ML 1ML VIAL SQ SCH ×3 (06:11→21:44)
[2022-08-15 07:32] LABS: HEMATOCRIT 19.4 % (32.4-45.2); MCH 25.4 pg (25.7-33.7); MCHC 34.3 g/dl (32.0-36.0); MEAN CELL VOLUME 74.1 fl (80-96); MEAN PLT VOLUME 8.7 fl (7.5-11.1); PLATELET COUNT 225 10^3/uL (134-434); RBC 2.61 M/mm3 (3.60-5.2); RDW 21.2 % (11.6-15.6); WHITE BLOOD COUNT 4.7 K/mm3 (4.0-10.0)
[2022-08-15 07:41] LABS: HEMOGLOBIN 6.6 GM/dL (10.7-15.3)
[2022-08-15 07:45] LABS: POTASSIUM 3.4 mmol/L (3.5-5.1)
[2022-08-15 07:57] LABS: CALCIUM 7.6 mg/dL (8.5-10.1)
[2022-08-15 07:58] LABS: ALBUMIN 1.4 g/dl (3.4-5.0); BLOOD UREA NITROGEN 7.9 mg/dL (7-18); MAGNESIUM 1.8 mg/dL (1.8-2.4)
[2022-08-15 08:01] LABS: CREATININE 0.4 mg/dL (0.55-1.3); PHOSPHOROUS 3.2 mg/dL (2.5-4.9)
[2022-08-15 08:02] LABS: BILIRUBIN,TOTAL 0.3 mg/dL (0.2-1); TOT PROT 6.2 g/dl (6.4-8.2)
[2022-08-15] MEDS: BICTEGRAV/EMTRICIT/TENOFOV (BIKTARVY) 50-200-25 MG TABLET PO SCH (08:06)
[2022-08-15] MEDS: AMINO ACIDS/PROTEIN HYDROLYS 30 ML LIQUID.PKT GT SCH (08:06)
[2022-08-15] MEDS ORDERED: predniSONE 20 MG TABLET (UD) PO SCH (10:00)
[2022-08-15] MEDS: clonazePAM 0.5 MG TABLET PO SCH ×2 (10:24→21:44)
[2022-08-15] MEDS: ZINC SULFATE 220 MG CAPSULE (FP) GT SCH (10:24)
[2022-08-15] MEDS: FLUCONAZOLE 200 MG/NS 100 ML IVPB SCH (10:24)
[2022-08-15] MEDS: PANTOPRAZOLE SODIUM 40 MG VIAL IVPUSH SCH (10:25)
[2022-08-15] MEDS: COLLAGENASE CLOSTRIDIUM HIST. 30 GRAMS TUBE TP SCH (10:25)
[2022-08-15] MEDS: ASCORBIC ACID 500 MG TABLET (FP) PO SCH ×2 (10:25→21:44)
[2022-08-15] MEDS: MULTIVITAMINS (DAILY MVI) TABLET (FP) PO SCH (10:25)
[2022-08-15] MEDS: valACYclovir HCL 500 MG TABLET (FP) PO SCH ×2 (11:21→21:44)
[2022-08-15] MEDS ORDERED: POTASSIUM CHLORIDE ORAL LIQUID 20 MEQ/15 ML PO ONE (14:42)
[2022-08-15] MEDS: CHLORHEXIDINE GLUCONATE 4% CLEANSER FOR DECOLONIZATION TP SCH (21:45)
[2022-08-16] MEDS: LORazepam 2 MG/ML SDV VIAL IVPUSH PRN ×3 (02:23→21:32)
[2022-08-16] MEDS: PIPERACILLIN/TAZOB 3.375 GM 3.375 GM in DEXTROSE 5%-WATER - 50 ML IVPB SCH ×3 (02:24→18:14)
[2022-08-16] MEDS: morphine SULFATE 4 MG/ML VIAL IVPUSH SCH ×4 (06:05→23:55)
[2022-08-16] MEDS: HEPARIN NA (PORCINE) 5,000 UNITS/ML 1ML VIAL SQ SCH ×4 (06:06→22:31)
[2022-08-16] MEDS: SULFAMETHOXAZOLE/TRIMETHOPRIM 300 MG in DEXTROSE 5%-WATER - 500 ML IVPB SCH ×3 (06:07→22:30)
[2022-08-16 06:55] VITALS: RESP 18
[2022-08-16] MEDS ORDERED: ALBUTEROL SO4 2.5/IPRATROPIUM 0.5 INH SOL 3 ML VIAL.NEB. NEB PRN (09:23)
[2022-08-16] MEDS: predniSONE 20 MG TABLET (UD) PO SCH (10:25)
[2022-08-16] MEDS: ZINC SULFATE 220 MG CAPSULE (FP) GT SCH (10:26)
[2022-08-16] MEDS: clonazePAM 0.5 MG TABLET PO SCH ×2 (10:26→21:33)
[2022-08-16] MEDS: MULTIVITAMINS (DAILY MVI) TABLET (FP) PO SCH (10:27)
[2022-08-16] MEDS: PANTOPRAZOLE SODIUM 40 MG VIAL IVPUSH SCH (10:27)
[2022-08-16] MEDS: valACYclovir HCL 500 MG TABLET (FP) PO SCH ×2 (10:27→21:33)
[2022-08-16] MEDS: ASCORBIC ACID 500 MG TABLET (FP) PO SCH ×2 (10:28→22:30)
[2022-08-16] MEDS: AMINO ACIDS/PROTEIN HYDROLYS 30 ML LIQUID.PKT GT SCH (10:29)
[2022-08-16] MEDS: BICTEGRAV/EMTRICIT/TENOFOV (BIKTARVY) 50-200-25 MG TABLET PO SCH ×2 (10:39→10:40)
[2022-08-16 11:52] LABS: BASO % 0.8 % (0-2.0); EOS % 1.2 % (0-4.5); HEMATOCRIT 26.9 % (32.4-45.2); HEMOGLOBIN 8.8 GM/dL (10.7-15.3); MCH 24.4 pg (25.7-33.7); MCHC 32.7 g/dl (32.0-36.0); MEAN CELL VOLUME 74.6 fl (80-96); MEAN PLT VOLUME 7.8 fl (7.5-11.1); MONO % 3.6 % (3.8-10.2); NEUT % 84.4 % (42.8-82.8); PLATELET COUNT 262 10^3/uL (134-434); RDW 20.8 % (11.6-15.6); WHITE BLOOD COUNT 3.2 K/mm3 (4.0-10.0)
[2022-08-16 12:02] LABS: POTASSIUM 4.1 mmol/L (3.5-5.1)
[2022-08-16 12:04] LABS: CALCIUM 8.3 mg/dL (8.5-10.1)
[2022-08-16 12:05] LABS: BLOOD UREA NITROGEN 7.5 mg/dL (7-18)
[2022-08-16 12:08] LABS: BILIRUBIN,TOTAL 0.2 mg/dL (0.2-1); CREATININE 0.3 mg/dL (0.55-1.3); TOT PROT 7.2 g/dl (6.4-8.2)
[2022-08-16 12:12] LABS: ALBUMIN 1.7 g/dl (3.4-5.0)
[2022-08-16 12:24] LABS: ANISOCYTOSIS 2+; MACROCYTOSIS 0
[2022-08-16] MEDS: FLUCONAZOLE 200 MG/NS 100 ML IVPB SCH (12:27)
[2022-08-16] MEDS: COLLAGENASE CLOSTRIDIUM HIST. 30 GRAMS TUBE TP SCH (15:26)
[2022-08-16] MEDS ORDERED: CHLORHEXIDINE GLUCONATE 4% CLEANSER FOR DECOLONIZATION TP SCH (22:00)
[2022-08-17] MEDS: PIPERACILLIN/TAZOB 3.375 GM 3.375 GM in DEXTROSE 5%-WATER - 50 ML IVPB SCH ×3 (01:24→17:29)
[2022-08-17] MEDS: HEPARIN NA (PORCINE) 5,000 UNITS/ML 1ML VIAL SQ SCH ×3 (06:07→21:15)
[2022-08-17] MEDS: morphine SULFATE 4 MG/ML VIAL IVPUSH SCH ×3 (06:08→18:18)
[2022-08-17] MEDS: SULFAMETHOXAZOLE/TRIMETHOPRIM 300 MG in DEXTROSE 5%-WATER - 500 ML IVPB SCH ×3 (06:08→21:17)
[2022-08-17] MEDS: AMINO ACIDS/PROTEIN HYDROLYS 30 ML LIQUID.PKT GT SCH (08:37)
[2022-08-17] MEDS: BICTEGRAV/EMTRICIT/TENOFOV (BIKTARVY) 50-200-25 MG TABLET PO SCH (08:37)
[2022-08-17] MEDS: LORazepam 2 MG/ML SDV VIAL IVPUSH PRN ×3 (08:52→21:36)
[2022-08-17] MEDS: PANTOPRAZOLE SODIUM 40 MG VIAL IVPUSH SCH (09:48)
[2022-08-17] MEDS: predniSONE 20 MG TABLET (UD) PO SCH (09:48)
[2022-08-17] MEDS: ZINC SULFATE 220 MG CAPSULE (FP) GT SCH (09:49)
[2022-08-17] MEDS: ASCORBIC ACID 500 MG TABLET (FP) PO SCH ×2 (09:49→21:17)
[2022-08-17] MEDS: clonazePAM 0.5 MG TABLET PO SCH ×2 (09:49→21:36)
[2022-08-17] MEDS: valACYclovir HCL 500 MG TABLET (FP) PO SCH ×2 (09:49→21:14)
[2022-08-17] MEDS: MULTIVITAMINS (DAILY MVI) TABLET (FP) PO SCH (09:49)
[2022-08-17] MEDS: FLUCONAZOLE 200 MG/NS 100 ML IVPB SCH (10:52)
[2022-08-17 11:23] LABS: BASO % 0.9 % (0-2.0); HEMATOCRIT 26.2 % (32.4-45.2); HEMOGLOBIN 8.7 GM/dL (10.7-15.3); LYMPH % 8.7 % (8-40); MCH 24.7 pg (25.7-33.7); MCHC 33.3 g/dl (32.0-36.0); MEAN PLT VOLUME 7.9 fl (7.5-11.1); MONO % 4.4 % (3.8-10.2); PLATELET COUNT 278 10^3/uL (134-434); RBC 3.55 M/mm3 (3.60-5.2); RDW 21.3 % (11.6-15.6); WHITE BLOOD COUNT 3.7 K/mm3 (4.0-10.0)
[2022-08-17 11:54] LABS: POTASSIUM 3.9 mmol/L (3.5-5.1)
[2022-08-17 12:01] LABS: CALCIUM 8.1 mg/dL (8.5-10.1)
[2022-08-17 12:02] LABS: ALBUMIN 1.7 g/dl (3.4-5.0); BLOOD UREA NITROGEN 7.8 mg/dL (7-18)
[2022-08-17 12:05] LABS: CREATININE 0.4 mg/dL (0.55-1.3)
[2022-08-17 12:07] LABS: TOT PROT 6.9 g/dl (6.4-8.2)
[2022-08-17 12:08] LABS: BILIRUBIN,TOTAL 0.6 mg/dL (0.2-1)
[2022-08-17] MEDS: COLLAGENASE CLOSTRIDIUM HIST. 30 GRAMS TUBE TP SCH (14:41)
[2022-08-18] MEDS: morphine SULFATE 4 MG/ML VIAL IVPUSH SCH ×5 (00:58→21:23)
[2022-08-18] MEDS: PIPERACILLIN/TAZOB 3.375 GM 3.375 GM in DEXTROSE 5%-WATER - 50 ML IVPB SCH ×3 (01:01→17:00)
[2022-08-18] MEDS: LORazepam 2 MG/ML SDV VIAL IVPUSH PRN ×2 (03:32→09:57)
[2022-08-18] MEDS: HEPARIN NA (PORCINE) 5,000 UNITS/ML 1ML VIAL SQ SCH ×4 (05:17→21:34)
[2022-08-18] MEDS: SULFAMETHOXAZOLE/TRIMETHOPRIM 300 MG in DEXTROSE 5%-WATER - 500 ML IVPB SCH ×3 (06:18→21:24)
[2022-08-18] MEDS: BICTEGRAV/EMTRICIT/TENOFOV (BIKTARVY) 50-200-25 MG TABLET PO SCH (07:45)
[2022-08-18] MEDS: AMINO ACIDS/PROTEIN HYDROLYS 30 ML LIQUID.PKT GT SCH (07:46)
[2022-08-18] MEDS: ZINC SULFATE 220 MG CAPSULE (FP) GT SCH (09:57)
[2022-08-18] MEDS: ASCORBIC ACID 500 MG TABLET (FP) PO SCH ×2 (09:57→21:23)
[2022-08-18] MEDS: valACYclovir HCL 500 MG TABLET (FP) PO SCH ×2 (09:57→21:23)
[2022-08-18] MEDS: MULTIVITAMINS (DAILY MVI) TABLET (FP) PO SCH (09:57)
[2022-08-18] MEDS: clonazePAM 0.5 MG TABLET PO SCH ×2 (09:58→21:23)
[2022-08-18] MEDS: predniSONE 20 MG TABLET (UD) PO SCH (09:58)
[2022-08-18] MEDS: ESCITALOPRAM OXALATE 20 MG TABLET PO SCH (09:59)
[2022-08-18] MEDS ORDERED: FLUCONAZOLE 100 MG TABLET (UD) PO SCH (10:00)
[2022-08-18] MEDS: PANTOPRAZOLE 40 MG TABLET PO SCH (10:02)
[2022-08-18] MEDS: COLLAGENASE CLOSTRIDIUM HIST. 30 GRAMS TUBE TP SCH (14:20)
[2022-08-19] MEDS ORDERED: MELATONIN 5 MG TABLETS PO PRN (00:03)
[2022-08-19] MEDS: LORazepam 2 MG/ML SDV VIAL IVPUSH PRN (00:19)
[2022-08-19] MEDS: morphine SULFATE 4 MG/ML VIAL IVPUSH SCH ×3 (04:30→13:09)
[2022-08-19] MEDS: HEPARIN NA (PORCINE) 5,000 UNITS/ML 1ML VIAL SQ SCH ×2 (06:13→13:11)
[2022-08-19] MEDS: SULFAMETHOXAZOLE/TRIMETHOPRIM 300 MG in DEXTROSE 5%-WATER - 500 ML IVPB SCH ×2 (06:31→13:10)
[2022-08-19] MEDS: clonazePAM 0.5 MG TABLET PO SCH (09:45)
[2022-08-19] MEDS: predniSONE 20 MG TABLET (UD) PO SCH (09:46)
[2022-08-19] MEDS: PANTOPRAZOLE 40 MG TABLET PO SCH (09:46)
[2022-08-19] MEDS: valACYclovir HCL 500 MG TABLET (FP) PO SCH (09:46)
[2022-08-19] MEDS: ZINC SULFATE 220 MG CAPSULE (FP) GT SCH (09:46)
[2022-08-19] MEDS: MULTIVITAMINS (DAILY MVI) TABLET (FP) PO SCH (09:46)
[2022-08-19] MEDS: ESCITALOPRAM OXALATE 20 MG TABLET PO SCH (09:46)
[2022-08-19] MEDS: AMINO ACIDS/PROTEIN HYDROLYS 30 ML LIQUID.PKT GT SCH (09:47)
[2022-08-19] MEDS: BICTEGRAV/EMTRICIT/TENOFOV (BIKTARVY) 50-200-25 MG TABLET PO SCH (09:47)
[2022-08-19] MEDS: COLLAGENASE CLOSTRIDIUM HIST. 30 GRAMS TUBE TP SCH (09:47)
[2022-08-19] MEDS: ASCORBIC ACID 500 MG TABLET (FP) PO SCH (09:47)
[2022-08-19 15:21] VITALS: PULSE 113
[2022-08-19 15:36] VITALS: BP 129/76; TEMP 98
[2022-08-19] MEDS ORDERED: ATOVAQUONE 750 MG/5 ML (UNIT-DOSE PACKAGING) PO SCH (22:00)
== END 2022-08-19 18:21 | disposition home or self-care (01) | DRG 890 ==
LOC: JER 12:43 → JERBED 16:04 → JICU 19:27 → J5S 08-16 06:29
PROVIDERS: ADMIT Internal Medicine
PROC: 4A133B1 Monitoring of Arterial Pressure, Peripheral, Percutaneous Approach (ICD-10-PCS; 2022-08-03)
PROC: 4A133J1 Monitoring of Arterial Pulse, Peripheral, Percutaneous Approach (ICD-10-PCS; 2022-08-03)
PROC: 05HM33Z Insertion of Infusion Device into Right Internal Jugular Vein, Percutaneous Approach (ICD-10-PCS; 2022-08-03)
PROC: B543ZZA Ultrasonography of Right Jugular Veins, Guidance (ICD-10-PCS; 2022-08-03)
PROC: XW033E5 Introduction of Remdesivir Anti-infective into Peripheral Vein, Percutaneous Approach, New Technology Group 5 (ICD-10-PCS; 2022-08-04)
PROC: 30233N1 Transfusion of Nonautologous Red Blood Cells into Peripheral Vein, Percutaneous Approach (ICD-10-PCS; 2022-08-05)
PROC: 5A1945Z Respiratory Ventilation, 24-96 Consecutive Hours (ICD-10-PCS; principal; 2022-08-11)
PROC: 0BH17EZ Insertion of Endotracheal Airway into Trachea, Via Natural or Artificial Opening (ICD-10-PCS; 2022-08-11)
DX: A41.9 Sepsis, unspecified organism (principal); U07.1 COVID-19; J18.9 Pneumonia, unspecified organism; J80 Acute respiratory distress syndrome; R65.21 Severe sepsis with septic shock; R64 Cachexia; F11.20 Opioid dependence, uncomplicated; Z68.1 Body mass index [BMI] 19.9 or less, adult; E43 Unspecified severe protein-calorie malnutrition; B20 Human immunodeficiency virus [HIV] disease; D64.9 Anemia, unspecified; E87.20 Acidosis, unspecified; F41.8 Other specified anxiety disorders; E87.6 Hypokalemia; D61.818 Other pancytopenia
CPT/HCPCS: 0241U-QW; 36415; 36430; 36600; 71045-TC-FY; 71275-TC; 74019-TC-FY; 76775-TC; 80048; 80053; 80307; 81003; 82272; 82308; 82550; 82728; 82803; 82962; 83516; 83520; 83540; 83550; 83605; 83615; 83735; 84100; 84439; 84443; 84466; 84484; 84703; 85025; 85027; 85045; 85610; 85651; 85730; 86038; 86140; 86160; 86225; 86256; 86359; 86360; 86850; 86900; 86901; 86922; 87040; 87070; 87077; 87086; 87102; 87116; 87186; 87205; 87206; 87210; 87281; 87305; 87389; 87449; 87522; 87536; 87899; 88104; 88305-TC; 93005; 93010; 93306-TC; 94002; 94660; 94761; 97116-GP; 97162-GP; 99291; C9399; C9803-CS; G0480; J1100; J1644; P9058; Q9967; U0003; U0005